=== PATIENT | male | born 1980 | race Caucasian/White ===

== ENCOUNTER 2023-06-21 07:56 | Inpatient (IN) ==
--- NOTE | 2023-06-21 08:23 | DR.GENAD ---
HPI Time Seen Time Seen by Provider: 06/21/23 08:47 PCP Primary Care Physician: Kai Complaint/Symptoms Chief Complaint Doctors Comments: Patient has a 10-year history of chronic infection of his bilateral lower legs. He states that he has had blood clots in both lower legs and he has not been able to heal the wounds in his had a chronic infection in both of those legs. Due to work-up on this patient and Dr. Mcpherson is to come over and further evaluate the chronic bilateral lower leg infections Chief Complaint:: Dr Mcpherson sent me here to [facility] bad spots on my legs secondary cellulitis and blood clots COVID-19 Coronavirus risk:travel/contact w/high risk person: No Has patient experienced Coronavirus symptoms: No Source History Provided: Patient Mode of Arrival Mode of Arrival: Ambulatory Timing Onset of Chief Complaint: 06/21/23 PMH PMH Past Medical History: Yes Past Medical History: Coronary Artery Disease and Hypertension Past Surgical History: Yes Surgical History: Angioplasty/Stents Family History History of Family Medical Conditions: Yes Family Medical History: Diabetes Mellitus, Coronary Artery Disease and Hypertension Social History Does patient currently use any type of tobacco product: No Have you used tobacco products in the last 12 months: No Type of Tobacco Use: None Does any household member use tobacco: No Alcohol Use: None Do you use any recreational Drugs:: No Lives With: Mom Lives Where: Home Travel Risk Coronavirus risk:travel/contact w/high risk person: No Has patient experienced Coronavirus symptoms: No Infectious screening In the last 2 months have you had wt loss of >10#?: NO Have you had fever, night sweats or hemotysis?: No Have you traveled outside the country in the last 6 months?: No Isolation: Standard ROS Review of Systems Constitutional: Other (bilateral lower leg infections) Eyes: No Symptoms Reported ENTM: No Symptoms Reported Respiratoy: No Symptoms Reported Cardiovascular: No Symptoms Reported Gastrointestinal/Abdominal: No Symptoms Reported Genitourinary: No Symptoms Reported Neurological: No Symptoms Reported Musculoskeletal: No Symptoms Reported Integumentary: Other (Bilateral lower leg infections) Hematologic/Lymphatic: No Symptoms Reported Endocrine: No Symptoms Reported Psychiatric: No Symptoms Reported PE Vital Signs Vitals: Vital Signs Temperature 98.1 F Pulse Rate 65 Respiratory Rate 18 Blood Pressure 150/77 O2 Sat by Pulse Oximetry 98 General Limitations: No Limitations General Appearance: In Distress (mild distress) Head Head Exam: Normal Inspection, Atraumatic and Normocephalic Eyes Eye exam: Normal Appearance, PERRL and EOMI ENT ENT Exam: Normal Exam, Normal Oropharynx and Normal External Ear Exam External Ear Exam: Normal External Inspection TM/Canal Exam: Bilateral: Normal Nose Exam: Normal Nose Exam Mouth Exam: Normal Inspection Throat Exam: Normal Inspection Neck Neck Exam: Normal Inspection, Full ROM and Trachea Midline Chest Chest Inspection: Normal Inspection and Symmetric Chest Wall Rise Respiratory Respiratory Exam: Normal Lung Sounds Bilat Respiratory Exam: Bilateral: Clear to Auscultation Cardiovascular Cardiovascular Exam: Regular Rate and Normal Rhythm Abdominal Exam Abdominal Exam: Normal Inspection Extremities Extremities Exam: Other (bilateral lower leg infections) Back Back Exam: Normal Inspection Neurologic Neurological Exam: Alert, Oriented X3 and CN II-XII Intact Psychiatric Psychiatric Exam: Normal Affect and Normal Mood Skin Skin Exam: Erythema (bilateral lowerleg) MDM Differential Diagnosis Differential Diagnosis: bilateral lower leg infections,cellulitis bilateral lower legs COURSE Treatment Treatment: This patient was admitted to Dr. Lovelace for treatments of his bilateral lower leg cellulitis. ROR Labs Reviewed Laboratory Results Reviewed?: Yes 06/21/23 08:43 06/21/23 08:43 Laboratory: WBC 8.5 X10^3/uL (3.6-10.0) 06/21/23 08:43 RBC 4.21 X10^6/uL (4.7-6.0) L 06/21/23 08:43 Hgb 11.1 g/dL (13.5-18.0) L 06/21/23 08:43 Hct 34.0 % (42.0-54.0) L 06/21/23 08:43 MCV 80.7 fL (80.0-100.0) 06/21/23 08:43 MCH 26.3 pg (27.0-34.0) L 06/21/23 08:43 MCHC 32.6 g/dL (33.0-35.0) L 06/21/23 08:43 RDW 17.1 % (11.6-16.5) H 06/21/23 08:43 Plt Count 166 X10^3/uL (150.0-450.0) 06/21/23 08:43 MPV 9.9 fL (7.4-11.0) 06/21/23 08:43 Neut % (Auto) 69.4 % (42.0-75.0) 06/21/23 08:43 Lymph % (Auto) 17.6 % (21.0-51.0) L 06/21/23 08:43 [place] % (Auto) 9.2 % (0.0-13.0) 06/21/23 08:43 Eos % (Auto) 2.8 % (0.9-2.9) 06/21/23 08:43 Baso % (Auto) 1.0 % (0.2-1.0) 06/21/23 08:43 Neut # (Auto) 5.9 x10^3/uL (2.2-4.8) H 06/21/23 08:43 Lymph # (Auto) 1.5 X10^3/uL (1.3-2.9) 06/21/23 08:43 [place] # (Auto) 0.8 x10^3/uL (0.3-0.8) 06/21/23 08:43 Eos # (Auto) 0.2 x10^3/uL (0.0-0.2) 06/21/23 08:43 Baso # (Auto) 0.1 X10^3/uL (0.0-0.1) 06/21/23 08:43 Absolute Nucleated RBC 0.2 /100WBC 06/21/23 08:43 Sodium 137 mmol/L (136-145) 06/21/23 08:43 Corrected Sodium TNP 06/21/23 08:43 Potassium 4.4 mmol/L (3.5-5.1) 06/21/23 08:43 Chloride 102 mmol/L (98-107) 06/21/23 08:43 Carbon Dioxide 28.4 mmol/L (21-32) 06/21/23 08:43 BUN 20 mg/dL (7-18) H 06/21/23 08:43 Creatinine 1.51 mg/dL (0.70-1.30) H 06/21/23 08:43 Est GFR (MDRD) Af Amer > 60 (>60) 06/21/23 08:43 Est GFR (MDRD) Non-Af 54 (>60) L 06/21/23 08:43 Glucose 98 mg/dL (65-99) 06/21/23 08:43 Calcium 7.8 mg/dL (8.5-10.1) L 06/21/23 08:43 Corrected Calcium 8.4 mg/dL (8.5-10.1) L 06/21/23 08:43 Total Bilirubin 0.50 mg/dL (0.2-1.0) 06/21/23 08:43 AST 31 Units/L (15-37) 06/21/23 08:43 ALT 19 Units/L (12-78) 06/21/23 08:43 Alkaline Phosphatase 100 Units/L (46-116) 06/21/23 08:43 Total Protein 8.1 g/dL (6.4-8.2) 06/21/23 08:43 Albumin 3.2 g/dL (3.4-5.0) L 06/21/23 08:43 Globulin 4.9 g/dL (2.5-4.5) H 06/21/23 08:43 Albumin/Globulin Ratio 0.7 Ratio (1.1-2.1) L 06/21/23 08:43 Opioid Opioid Risk Tool Age (Yong box if 16-45): Yes History of Preadolescent Sexual Abuse: No Total: 1 Total Score Risk Category: Low Risk Copyright: Phil BERUMEN predicting aberrant behaviors Discharge Plan Diagnosis Discharge Problem: Bilateral lower leg cellulitis Discharge Plan Patient Disposition: 09 ADMITTED INPATIENT Condition: Stable
[2023-06-21] MEDS ORDERED: VANCOMYCIN IV *PREMIX 1 G/200 ML BAG 1 G/200 ML PIGGYBACK IV ONE ×2 (08:29→08:54)
[2023-06-21] MEDS ORDERED: BETADINE SOLN ONE (08:57)
[2023-06-21] MEDS ORDERED: POLYMYXIN B SULFATE ONE (08:57)
[2023-06-21] MEDS ORDERED: FENTANYL VIAL INJ 100 mcg ONE (09:00)
[2023-06-21] MEDS ORDERED: VERSED ONE (09:00)
[2023-06-21] MEDS ORDERED: DIPRIVAN VIAL 20 ML ONE (09:00)
[2023-06-21] MEDS ORDERED: XYLOCAINE 1 % (PLAIN) ONE (09:06)
[2023-06-21] MEDS ORDERED: LR 1,000 ML IV 1,000 ML IV ONE (09:08)
[2023-06-21] MEDS ORDERED: SUPRANE ONE (09:28)
[2023-06-21 09:37] LABS: BASOPHILS # (AUTO) 0.1 X10^3/uL (0.0-0.1); EOSINOPHILS # (AUTO) 0.2 x10^3/uL (0.0-0.2); EOSINOPHILS % (AUTO) 2.8 % (0.9-2.9); HEMOGLOBIN 11.1 g/dL (13.5-18.0); LYMPHOCYTES # (AUTO) 1.5 X10^3/uL (1.3-2.9); LYMPHOCYTES % (AUTO) 17.6 % (21.0-51.0); MEAN CORPUSCULAR HEMOGLOBIN 26.3 pg (27.0-34.0); MEAN CORPUSCULAR HGB CONC 32.6 g/dL (33.0-35.0); MEAN CORPUSCULAR VOLUME 80.7 fL (80.0-100.0); MEAN PLATELET VOLUME 9.9 fL (7.4-11.0); MONOCYTES # (AUTO) 0.8 x10^3/uL (0.3-0.8); MONOCYTES % (AUTO) 9.2 % (0.0-13.0); NEUTROPHILS # (AUTO) 5.9 x10^3/uL (2.2-4.8); NEUTROPHILS % (AUTO) 69.4 % (42.0-75.0); PLATELET COUNT 166 X10^3/uL (150.0-450.0); RED BLOOD COUNT 4.21 X10^6/uL (4.7-6.0); RED CELL DISTRIBUTION WIDTH 17.1 % (11.6-16.5); WHITE BLOOD COUNT 8.5 X10^3/uL (3.6-10.0)
[2023-06-21 09:47] LABS: ALANINE AMINOTRANSFERASE 19 Units/L (12-78); ALBUMIN 3.2 g/dL (3.4-5.0); ALKALINE PHOSPHATASE 100 Units/L (46-116); ASPARTATE AMINO TRANSFERASE 31 Units/L (15-37); BLOOD UREA NITROGEN 20 mg/dL (7-18); CALCIUM 7.8 mg/dL (8.5-10.1); CARBON DIOXIDE 28.4 mmol/L (21-32); CHLORIDE 102 mmol/L (98-107); COR CA(FOR HYPOALB) 8.4 mg/dL (8.5-10.1); CREATININE 1.51 mg/dL (0.70-1.30); GLUCOSE 98 mg/dL (65-99); POTASSIUM 4.4 mmol/L (3.5-5.1); SODIUM 137 mmol/L (136-145); TOTAL PROTEIN 8.1 g/dL (6.4-8.2); eGFR NON BLACK RACES 54 (>60)
[2023-06-21] MEDS ORDERED: BARHEMSYS INJ IVP PRN (10:38)
[2023-06-21] MEDS ORDERED: BENADRYL INJ 50 MG VIAL IVP PRN (10:38)
[2023-06-21] MEDS ORDERED: REGLAN INJ 10 MG VIAL IVP PRN (10:38)
[2023-06-21] MEDS ORDERED: ZOFRAN INJ 4 MG VIAL IVP PRN (10:38)
[2023-06-21] MEDS: DILAUDID INJ IVP PRN ×6 (10:45→20:32)
[2023-06-21] MEDS: VANCOMYCIN IV *PREMIX 1 G/200 ML BAG 1 G/200 ML PIGGYBACK IV SCH ×2 (12:37→20:34)
[2023-06-21] MEDS: DIOVAN TAB 80 MG PO SCH (18:10)
[2023-06-21] MEDS: ALDACTONE TAB 25 MG PO SCH (20:33)
[2023-06-21] MEDS: BUMEX TAB 1 MG PO SCH (20:33)
[2023-06-21] MEDS ORDERED: NS 250 ML IV 250 ML IV PRN (20:41)
[2023-06-21] MEDS: NEURONTIN CAP 400 MG PO SCH (21:48)
[2023-06-21] MEDS ORDERED: NEURONTIN TAB 600 MG PO SCH (22:00)
[2023-06-22] MEDS: DILAUDID INJ IVP PRN ×2 (05:42→20:26)
[2023-06-22] MEDS: NEURONTIN CAP 400 MG PO SCH ×3 (05:45→21:25)
[2023-06-22 06:53] LABS: BASOPHILS % (AUTO) 0.5 % (0.2-1.0); EOSINOPHILS # (AUTO) 0.2 x10^3/uL (0.0-0.2); EOSINOPHILS % (AUTO) 2.5 % (0.9-2.9); HEMATOCRIT 34.6 % (42.0-54.0); HEMOGLOBIN 11.2 g/dL (13.5-18.0); LYMPHOCYTES % (AUTO) 15.6 % (21.0-51.0); MEAN CORPUSCULAR HEMOGLOBIN 26.1 pg (27.0-34.0); MEAN CORPUSCULAR HGB CONC 32.4 g/dL (33.0-35.0); MEAN CORPUSCULAR VOLUME 80.6 fL (80.0-100.0); MEAN PLATELET VOLUME 9.4 fL (7.4-11.0); MONOCYTES # (AUTO) 0.6 x10^3/uL (0.3-0.8); MONOCYTES % (AUTO) 9.6 % (0.0-13.0); NEUTROPHILS # (AUTO) 4.7 x10^3/uL (2.2-4.8); NEUTROPHILS % (AUTO) 71.8 % (42.0-75.0); PLATELET COUNT 175 X10^3/uL (150.0-450.0); WHITE BLOOD COUNT 6.6 X10^3/uL (3.6-10.0)
[2023-06-22 07:03] LABS: ALANINE AMINOTRANSFERASE 18 Units/L (12-78); ALKALINE PHOSPHATASE 97 Units/L (46-116); ASPARTATE AMINO TRANSFERASE 22 Units/L (15-37); BLOOD UREA NITROGEN 16 mg/dL (7-18); CALCIUM 7.6 mg/dL (8.5-10.1); CHLORIDE 103 mmol/L (98-107); COR CA(FOR HYPOALB) 8.4 mg/dL (8.5-10.1); CREATININE 1.77 mg/dL (0.70-1.30); GLUCOSE 95 mg/dL (65-99); POTASSIUM 4.6 mmol/L (3.5-5.1); SODIUM 139 mmol/L (136-145); TOTAL PROTEIN 7.6 g/dL (6.4-8.2); eGFR NON BLACK RACES 45 (>60)
[2023-06-22] MEDS: BUMEX TAB 1 MG PO SCH ×2 (08:45→20:23)
[2023-06-22] MEDS: ALDACTONE TAB 25 MG PO SCH (08:45)
[2023-06-22] MEDS: DIOVAN TAB 80 MG PO SCH (08:46)
[2023-06-22] MEDS: VANCOMYCIN IV *PREMIX 1 G/200 ML BAG 1 G/200 ML PIGGYBACK IV SCH (08:46)
[2023-06-22] MEDS: LOVENOX INJ 40 MG SYR SC SCH ×2 (08:47→10:00)
[2023-06-22] MEDS ORDERED: ALDACTONE TAB 25 MG PO SCH (09:00)
[2023-06-22] MEDS ORDERED: BUMEX TAB 1 MG PO SCH (09:00)
--- NOTE | 2023-06-22 11:22 | DR.H&P ---
H&P History & Physical for Day of: H&P Date: 06/21/23 Chief Complaint Chief Complaint: Bilateral leg wound's is draining Allergies Allergies Allergy/AdvReac Type Severity Reaction Status Date / Time No Known Drug Allergies Allergy Unknown Verified 06/20/23 15:12 History of Present Illness History of Present Illness: This is a 43-year-old white male well-known to me. He has chronic stasis venous ulcers of his legs bilaterally. Saw in the office yesterday and they were draining and had a foul odor. Afterwards he saw general surgery, Dr. Reed who recommended that we put him in the hospital for debridement which she had earlier this morning. We will keep him in the hospital over the weekend and diuresing him and treatment IV antibiotics. Follow-up with wound cultures as well. Past Medical History Past Medical History: Coronary Artery Disease and Hypertension Past Surgical History Surgical History: Angioplasty/Stents Family History Family Medical History: Diabetes Mellitus, Coronary Artery Disease and Hypertension Social History Does patient currently use any type of tobacco product: Yes (CHEWING TOBACCO) Have you used tobacco products in the last 12 months: Yes Type of Tobacco Use: Smokeless Does any household member use tobacco: No Alcohol Use: None Drug Use: None Medications Home Medications: Home Medications Medication Instructions Recorded Confirmed Type gabapentin 800 mg tablet 800 mg PO TID 06/21/23 06/21/23 History Labs 06/22/23 05:28 06/22/23 05:28 Labs: 06/21/23 10:10 Leg - Right Wound Gram Stain - Final 06/21/23 10:10 Leg - Right Wound Culture - Preliminary 06/21/23 09:55 Leg - Left Wound Gram Stain - Final 06/21/23 09:55 Leg - Left Wound Culture - Preliminary Laboratory WBC 6.6 X10^3/uL (3.6-10.0) 06/22/23 05:28 RBC 4.30 X10^6/uL (4.7-6.0) L 06/22/23 05:28 Hgb 11.2 g/dL (13.5-18.0) L 06/22/23 05:28 Hct 34.6 % (42.0-54.0) L 06/22/23 05:28 MCV 80.6 fL (80.0-100.0) 06/22/23 05:28 MCH 26.1 pg (27.0-34.0) L 06/22/23 05: MCHC 32.4 g/dL (33.0-35.0) L 06/22/23 05: RDW 17.0 % (11.6-16.5) H 06/22/23 05:28 Plt Count 175 X10^3/uL (150.0-450.0) 06/22/23 05:28 MPV 9.4 fL (7.4-11.0) 06/22/23 05:28 Neut % (Auto) 71.8 % (42.0-75.0) 06/22/23 05:28 Lymph % (Auto) 15.6 % (21.0-51.0) L 06/22/23 05:28 [place] % (Auto) 9.6 % (0.0-13.0) 06/22/23 05: Eos % (Auto) 2.5 % (0.9-2.9) 06/22/23 05: Baso % (Auto) 0.5 % (0.2-1.0) 06/22/23 05:28 Neut # (Auto) 4.7 x10^3/uL (2.2-4.8) 06/22/23 05:28 Lymph # (Auto) 1.0 X10^3/uL (1.3-2.9) L 06/22/23 05:28 [place] # (Auto) 0.6 x10^3/uL (0.3-0.8) 06/22/23 05:28 Eos # (Auto) 0.2 x10^3/uL (0.0-0.2) 06/22/23 05:28 Baso # (Auto) 0.0 X10^3/uL (0.0-0.1) 06/22/23 05:28 Absolute Nucleated RBC 0.1 /100WBC 06/22/23 05:28 Sodium 139 mmol/L (136-145) 06/22/23 05:28 Corrected Sodium TNP 06/22/23 05:28 Potassium 4.6 mmol/L (3.5-5.1) 06/22/23 05:28 Chloride 103 mmol/L (98-107) 06/22/23 05:28 Carbon Dioxide 32.0 mmol/L (21-32) 06/22/23 05:28 BUN 16 mg/dL (7-18) 06/22/23 05:28 Creatinine 1.77 mg/dL (0.70-1.30) H 06/22/23 05:28 Est GFR (MDRD) Af Amer 54 (>60) L 06/22/23 05:28 Est GFR (MDRD) Non-Af 45 (>60) L 06/22/23 05:28 Glucose 95 mg/dL (65-99) 06/22/23 05:28 Calcium 7.6 mg/dL (8.5-10.1) L 06/22/23 05:28 Corrected Calcium 8.4 mg/dL (8.5-10.1) L 06/22/23 05:28 Total Bilirubin 0.50 mg/dL (0.2-1.0) 06/22/23 05:28 AST 22 Units/L (15-37) 06/22/23 05:28 ALT 18 Units/L (12-78) 06/22/23 05:28 Alkaline Phosphatase 97 Units/L (46-116) 06/22/23 05:28 Total Protein 7.6 g/dL (6.4-8.2) 06/22/23 05:28 Albumin 3.0 g/dL (3.4-5.0) L 06/22/23 05:28 Globulin 4.6 g/dL (2.5-4.5) H 06/22/23 05:28 Albumin/Globulin Ratio 0.7 Ratio (1.1-2.1) L 06/22/23 05:28 Random Vancomycin 25.8 ug/mL 06/22/23 05:28 Review of Systems Constitutional: No Symptoms Reported Eyes: No Symptoms Reported ENT: No Symptoms Reported Respiratory: No Symptoms Reported Cardiovascular: No Symptoms Reported Gastrointestinal: No Symptoms Reported Genitourinary: No Symptoms Reported Musculoskeletal: No Symptoms Reported Skin: Wound Neurological: No Symptoms Reported Physical Exam Vital Signs: Vital Signs Temperature 98.7 F Pulse Rate [Left Brachial] 65 Respiratory Rate 20 Respiratory Rate 20 Respiratory Rate 20 Blood Pressure [Left Arm] 145/72 O2 Sat by Pulse Oximetry 97 Oriented: Normal, Time, Person and Place Eyes: Normal Ear: Normal Nose: Normal Throat: Normal Respiratory: Clear Throughout Cardiovascular: Normal : Normal Auscultation: Bowel Sounds: Normal Palpation: Normal Tenderness: Normal Skin: Normal Musculoskeletal: Normal Psychiatric: Normal Mood Description: Calm Affect: Normal Speech Pattern: Clear Assessment/Plan (1) Bilateral lower leg cellulitis: Status: Acute Plan: Continue IV vancomycin. (2) On potassium wasting diuretic therapy: Status: Acute Plan: Continue potassium replacement. (3) Bilateral lower extremity edema: Status: Acute Plan: Continue patient on bumetanide and spironolactone. (4) Venous stasis ulcers of both lower extremities: Status: None Plan: Treatment per general surgery and IV vancomycin. Follow-up wound cultures. (5) History of blood coagulation disorder: Status: None Plan: Continue Eliquis. Review H&P Reviewed: Yes Patient was examined?: Yes
[2023-06-22 11:51] VITALS: BMI 59.3
--- NOTE | 2023-06-22 12:35 | PCM.PROG ---
Progress Note Progress Note for Day of Date of Exam: 06/22/23 Subjective Subjective: Patient seen at bedside, no acute events overnight. He was admitted for I&D for chronic LE ulcers. Dr Mcpherson did I&D yesterday and wound cultures were collected. He is currently on IV Vancomycin. Labs/imaging reviewed -Wound cx: gram (-) rods, prior hx of MRSA Plan: continue IV Vancomycin, follow final Cx. Follow surgery recommendations and wound care, dressing changes. Resume home medications. Monitor AM labs/imaging. Past Medical Family Social History Allergies: Allergies No Known Drug Allergies Allergy (Unknown, Verified 06/20/23 15:12) Onset Date: 10/10/2020 Vital Signs and I&O's Vital Signs: Vital Signs Temperature 97.8 F Pulse Rate [Left Brachial] 71 Respiratory Rate 19 Respiratory Rate 20 Respiratory Rate 20 Blood Pressure [Left Arm] 100/76 O2 Sat by Pulse Oximetry 97 Intake and Output: Intake & Output 06/19/23 06/20/23 06/21/23 06/22/23 23:59 23:59 23:59 23:59 Intake Total 2513 / 2513 622 / 622 Output Total 500 / 500 Balance 2012 622 / 622 Physical Exam Oriented: Normal, Time, Person and Place Eyes: Normal Ear: Normal Nose: Normal Throat: Normal Cardiovascular: Edema Auscultation: Bowel Sounds: Normal Tenderness: Normal Skin: Normal Musculoskeletal: Right, Left, Leg (dressing noted with drainage ) and Swelling Psychiatric: Normal Mood Description: Calm Affect: Normal Speech Pattern: Clear Laboratory and Diagnostics 06/22/23 05:28 06/22/23 05:28 Labs: 06/21/23 10:10 Leg - Right Wound Gram Stain - Final 06/21/23 10:10 Leg - Right Wound Culture - Preliminary 06/21/23 09:55 Leg - Left Wound Gram Stain - Final 06/21/23 09:55 Leg - Left Wound Culture - Preliminary Laboratory WBC 6.6 X10^3/uL (3.6-10.0) 06/22/23 05:28 RBC 4.30 X10^6/uL (4.7-6.0) L 06/22/23 05:28 Hgb 11.2 g/dL (13.5-18.0) L 06/22/23 05:28 Hct 34.6 % (42.0-54.0) L 06/22/23 05:28 MCV 80.6 fL (80.0-100.0) 06/22/23 05:28 MCH 26.1 pg (27.0-34.0) L 06/22/23 05:28 MCHC 32.4 g/dL (33.0-35.0) L 06/22/23 05:28 RDW 17.0 % (11.6-16.5) H 06/22/23 05:28 Plt Count 175 X10^3/uL (150.0-450.0) 06/22/23 05:28 MPV 9.4 fL (7.4-11.0) 06/22/23 05:28 Neut % (Auto) 71.8 % (42.0-75.0) 06/22/23 05:28 Lymph % (Auto) 15.6 % (21.0-51.0) L 06/22/23 05:28 [place] % (Auto) 9.6 % (0.0-13.0) 06/22/23 05:28 Eos % (Auto) 2.5 % (0.9-2.9) 06/22/23 05:28 Baso % (Auto) 0.5 % (0.2-1.0) 06/22/23 05:28 Neut # (Auto) 4.7 x10^3/uL (2.2-4.8) 06/22/23 05:28 Lymph # (Auto) 1.0 X10^3/uL (1.3-2.9) L 06/22/23 05:28 [place] # (Auto) 0.6 x10^3/uL (0.3-0.8) 06/22/23 05:28 Eos # (Auto) 0.2 x10^3/uL (0.0-0.2) 06/22/23 05:28 Baso # (Auto) 0.0 X10^3/uL (0.0-0.1) 06/22/23 05:28 Absolute Nucleated RBC 0.1 /100WBC 06/22/23 05:28 Sodium 139 mmol/L (136-145) 06/22/23 05:28 Corrected Sodium TNP 06/22/23 05:28 Potassium 4.6 mmol/L (3.5-5.1) 06/22/23 05:28 Chloride 103 mmol/L (98-107) 06/22/23 05:28 Carbon Dioxide 32.0 mmol/L (21-32) 06/22/23 05:28 BUN 16 mg/dL (7-18) 06/22/23 05:28 Creatinine 1.77 mg/dL (0.70-1.30) H 06/22/23 05:28 Est GFR (MDRD) Af Amer 54 (>60) L 06/22/23 05:28 Est GFR (MDRD) Non-Af 45 (>60) L 06/22/23 05:28 Glucose 95 mg/dL (65-99) 06/22/23 05:28 Calcium 7.6 mg/dL (8.5-10.1) L 06/22/23 05:28 Corrected Calcium 8.4 mg/dL (8.5-10.1) L 06/22/23 05:28 Total Bilirubin 0.50 mg/dL (0.2-1.0) 06/22/23 05:28 AST 22 Units/L (15-37) 06/22/23 05:28 ALT 18 Units/L (12-78) 06/22/23 05:28 Alkaline Phosphatase 97 Units/L (46-116) 06/22/23 05:28 Total Protein 7.6 g/dL (6.4-8.2) 06/22/23 05:28 Albumin 3.0 g/dL (3.4-5.0) L 06/22/23 05:28 Globulin 4.6 g/dL (2.5-4.5) H 06/22/23 05:28 Albumin/Globulin Ratio 0.7 Ratio (1.1-2.1) L 06/22/23 05:28 Random Vancomycin 25.8 ug/mL 06/22/23 05:28 Plan (1) Bilateral lower leg cellulitis: Status: Acute Plan: Continue IV vancomycin. (2) Bilateral lower extremity edema: Status: Acute Plan: Continue patient on bumetanide and spironolactone. (3) Venous stasis ulcers of both lower extremities: Status: None Plan: Treatment per general surgery and IV vancomycin. Follow-up wound cultures. (4) History of blood coagulation disorder: Status: None Plan: Continue Eliquis.
[2023-06-22] MEDS: ELIQUIS PO SCH ×2 (13:00→20:23)
[2023-06-22] MEDS: NORCO 10/325 TAB PO PRN (15:35)
[2023-06-22] MEDS ORDERED: PHARMACY COMMENT IV NR (20:30)
[2023-06-23] MEDS: DILAUDID INJ IVP PRN ×4 (05:42→22:03)
[2023-06-23] MEDS: NEURONTIN CAP 400 MG PO SCH ×3 (05:42→22:25)
[2023-06-23 07:02] LABS: BASOPHILS # (AUTO) 0.1 X10^3/uL (0.0-0.1); BASOPHILS % (AUTO) 1.2 % (0.2-1.0); EOSINOPHILS # (AUTO) 0.2 x10^3/uL (0.0-0.2); EOSINOPHILS % (AUTO) 5.1 % (0.9-2.9); HEMATOCRIT 34.6 % (42.0-54.0); HEMOGLOBIN 11.3 g/dL (13.5-18.0); LYMPHOCYTES # (AUTO) 1.4 X10^3/uL (1.3-2.9); LYMPHOCYTES % (AUTO) 30.9 % (21.0-51.0); MEAN CORPUSCULAR HGB CONC 32.6 g/dL (33.0-35.0); MEAN CORPUSCULAR VOLUME 79.7 fL (80.0-100.0); MEAN PLATELET VOLUME 9.1 fL (7.4-11.0); MONOCYTES # (AUTO) 0.7 x10^3/uL (0.3-0.8); MONOCYTES % (AUTO) 16.1 % (0.0-13.0); NEUTROPHILS # (AUTO) 2.1 x10^3/uL (2.2-4.8); NEUTROPHILS % (AUTO) 46.7 % (42.0-75.0); PLATELET COUNT 177 X10^3/uL (150.0-450.0); RED BLOOD COUNT 4.35 X10^6/uL (4.7-6.0); RED CELL DISTRIBUTION WIDTH 16.9 % (11.6-16.5); WHITE BLOOD COUNT 4.4 X10^3/uL (3.6-10.0)
[2023-06-23 07:14] LABS: ALANINE AMINOTRANSFERASE 21 Units/L (12-78); ALKALINE PHOSPHATASE 100 Units/L (46-116); ASPARTATE AMINO TRANSFERASE 27 Units/L (15-37); BLOOD UREA NITROGEN 21 mg/dL (7-18); CALCIUM 7.8 mg/dL (8.5-10.1); CARBON DIOXIDE 31.7 mmol/L (21-32); CHLORIDE 101 mmol/L (98-107); COR CA(FOR HYPOALB) 8.6 mg/dL (8.5-10.1); CREATININE 1.52 mg/dL (0.70-1.30); GLUCOSE 94 mg/dL (65-99); SODIUM 136 mmol/L (136-145); TOTAL PROTEIN 7.7 g/dL (6.4-8.2); eGFR NON BLACK RACES 53 (>60)
[2023-06-23 07:40] LABS: PLATELET MORPHOLOGY COMMENT NORMAL (NORMAL)
[2023-06-23 07:41] LABS: ANISOCYTOSIS SLIGHT; HYPOCHROMASIA SLIGHT
--- NOTE | 2023-06-23 08:53 | DR.PROGNOT ---
HOSPITAL PROGRESS NOTE Progress Note for Day of: Progress Note Date: 06/23/23 Chief Complaint Chief Complaint: feeling a little better with less pain . wound C&S showed G negative Rods and MRSA .. sensitive to Vancomycin . IRAIS 21 .. Creat 1.5 .normal WBC . afebrile .. Past Medical Family Social History Past Med/Fam/Surg Hx: No changes since H&P Allergies: Allergies No Known Drug Allergies Allergy (Unknown, Verified 06/20/23 15:12) Onset Date: 10/10/2020 Vital Signs Vital Signs: Vital Signs Temperature 97.6 F Pulse Rate [Left Brachial] 73 Respiratory Rate 18 Respiratory Rate 20 Respiratory Rate 20 Blood Pressure [Right Arm] 130/70 O2 Sat by Pulse Oximetry 99 Physical Exam Oriented: Normal, Time, Person and Place Eyes: Normal Ear: Normal Nose: Normal Throat: Normal Cardiovascular: Edema : Normal GI:Auscultation: Normal GI:Palpation: Normal GI: Tenderness: Normal Skin: Normal and Other (bilateral leg ulcer more on the RT with chronic edema and stasis ulcers .) Musculoskeletal: Right, Left, Leg (dressing noted with drainage ) and Swelling Psychiatric: Normal Mood Description: Calm Affect: Normal Speech Pattern: Clear and Appropriate Laboratory and Diagnostics 06/23/23 06:10 06/23/23 06:10 Labs: 06/21/23 10:10 Leg - Right Wound Gram Stain - Final 06/21/23 10:10 Leg - Right Wound Culture - Preliminary 06/21/23 09:55 Leg - Left Wound Gram Stain - Final 06/21/23 09:55 Leg - Left Wound Culture - Preliminary Laboratory WBC 4.4 X10^3/uL (3.6-10.0) 06/23/23 06:10 RBC 4.35 X10^6/uL (4.7-6.0) L 06/23/23 06:10 Hgb 11.3 g/dL (13.5-18.0) L 06/23/23 06:10 Hct 34.6 % (42.0-54.0) L 06/23/23 06:10 MCV 79.7 fL (80.0-100.0) L 06/23/23 06:10 MCH 26.0 pg (27.0-34.0) L 06/23/23 06:10 MCHC 32.6 g/dL (33.0-35.0) L 06/23/23 06:10 RDW 16.9 % (11.6-16.5) H 06/23/23 06:10 Plt Count 177 X10^3/uL (150.0-450.0) 06/23/23 06:10 Plt Count Comment Adequate (ADEQUATE) 06/23/23 06:10 MPV 9.1 fL (7.4-11.0) 06/23/23 06:10 Neut % (Auto) 46.7 % (42.0-75.0) 06/23/23 06:10 Lymph % (Auto) 30.9 % (21.0-51.0) 06/23/23 06:10 [place] % (Auto) 16.1 % (0.0-13.0) H 06/23/23 06:10 Eos % (Auto) 5.1 % (0.9-2.9) H 06/23/23 06:10 Baso % (Auto) 1.2 % (0.2-1.0) H 06/23/23 06:10 Neut # (Auto) 2.1 x10^3/uL (2.2-4.8) L 06/23/23 06:10 Lymph # (Auto) 1.4 X10^3/uL (1.3-2.9) 06/23/23 06:10 [place] # (Auto) 0.7 x10^3/uL (0.3-0.8) 06/23/23 06:10 Eos # (Auto) 0.2 x10^3/uL (0.0-0.2) 06/23/23 06:10 Baso # (Auto) 0.1 X10^3/uL (0.0-0.1) 06/23/23 06:10 Absolute Nucleated RBC 0.1 /100WBC 06/23/23 06:10 Total Counted 100 06/23/23 06:10 Neutrophils % (Manual) 51 % (39-76) 06/23/23 06:10 Lymphocytes % (Manual) 29 % (13-43) 06/23/23 06:10 Monocytes % (Manual) 17 % (4-9) H 06/23/23 06:10 Eosinophils % (Manual) 3 % (0-6) 06/23/23 06:10 Plt Morphology Comment Normal (NORMAL) 06/23/23 06:10 RBC Morphology Abnormal (NORMAL) 06/23/23 06:10 Hypochromasia Slight A 06/23/23 06:10 Anisocytosis Slight A 06/23/23 06:10 Sodium 136 mmol/L (136-145) 06/23/23 06:10 Corrected Sodium TNP 06/23/23 06:10 Potassium 4.0 mmol/L (3.5-5.1) 06/23/23 06:10 Chloride 101 mmol/L (98-107) 06/23/23 06:10 Carbon Dioxide 31.7 mmol/L (21-32) 06/23/23 06:10 BUN 21 mg/dL (7-18) H 06/23/23 06:10 Creatinine 1.52 mg/dL (0.70-1.30) H 06/23/23 06:10 Est GFR (MDRD) Af Amer > 60 (>60) 06/23/23 06:10 Est GFR (MDRD) Non-Af 53 (>60) L 06/23/23 06:10 Glucose 94 mg/dL (65-99) 06/23/23 06:10 Calcium 7.8 mg/dL (8.5-10.1) L 06/23/23 06:10 Corrected Calcium 8.6 mg/dL (8.5-10.1) 06/23/23 06:10 Total Bilirubin 0.40 mg/dL (0.2-1.0) 06/23/23 06:10 AST 27 Units/L (15-37) 06/23/23 06:10 ALT 21 Units/L (12-78) 06/23/23 06:10 Alkaline Phosphatase 100 Units/L (46-116) 06/23/23 06:10 Total Protein 7.7 g/dL (6.4-8.2) 06/23/23 06:10 Albumin 3.0 g/dL (3.4-5.0) L 06/23/23 06:10 Globulin 4.7 g/dL (2.5-4.5) H 06/23/23 06:10 Albumin/Globulin Ratio 0.6 Ratio (1.1-2.1) L 06/23/23 06:10 Random Vancomycin 22.4 ug/mL 06/23/23 06:10 Assessment and Plan 1: infected stasis ulcers both legs with cellulitis , s/p debridement . MRSA and G negative Rods . onIV vancomycin . 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 3: obesity , chronic edema lower extr Problem Patient Problems: Patient Problems Bilateral lower leg cellulitis (Acute) L03.116, L03.115
[2023-06-23] MEDS: ALDACTONE TAB 25 MG PO SCH (09:10)
[2023-06-23] MEDS: BUMEX TAB 1 MG PO SCH (09:10)
[2023-06-23] MEDS: ELIQUIS PO SCH ×2 (09:10→20:50)
[2023-06-23] MEDS: DIOVAN TAB 80 MG PO SCH (09:10)
--- NOTE | 2023-06-23 11:36 | PCM.PROG ---
Progress Note Progress Note for Day of Date of Exam: 06/23/23 Subjective Subjective: Patient seen at bedside, no acute events overnight. He was admitted for I&D for chronic LE ulcers. He is currently on IV Vancomycin. He had dressing change this morning. Labs/imaging reviewed - Cr: 1.52 -Wound cx: gram (-) rods, prior hx of MRSA Plan: continue IV Vancomycin, follow final Cx. Follow surgery recommendations and wound care, dressing changes. Continue home medications. Monitor AM labs/imaging. Past Medical Family Social History Past Med/Fam/Surg Hx: No changes since H&P Allergies: Allergies No Known Drug Allergies Allergy (Unknown, Verified 06/20/23 15:12) Onset Date: 10/10/2020 Vital Signs and I&O's Vital Signs: Vital Signs Temperature 97.6 F Pulse Rate [Left Brachial] 73 Respiratory Rate 18 Respiratory Rate 20 Respiratory Rate 20 Blood Pressure [Right Arm] 130/70 O2 Sat by Pulse Oximetry 99 Intake and Output: Intake & Output 06/20/23 06/21/23 06/22/23 06/23/23 23:59 23:59 23:59 23:59 Intake Total 2513 / 2513 1372 / 1372 814 / 814 Output Total 500 / 500 960 / 960 Balance 2012 1372 / 1372 -146 / -146 Physical Exam Oriented: Normal, Time, Person and Place Eyes: Normal Ear: Normal Nose: Normal Throat: Normal Cardiovascular: Edema Auscultation: Bowel Sounds: Normal Tenderness: Normal Skin: Normal and Other (bilateral leg ulcer more on the RT with chronic edema and stasis ulcers .) Musculoskeletal: Right, Left, Leg (dressing noted with drainage ) and Swelling Psychiatric: Normal Mood Description: Calm Affect: Normal Speech Pattern: Clear and Appropriate Laboratory and Diagnostics 06/23/23 06:10 06/23/23 06:10 Labs: 06/21/23 10:10 Leg - Right Wound Gram Stain - Final 06/21/23 10:10 Leg - Right Wound Culture - Preliminary Klebsiella Pneumoniae 06/21/23 09:55 Leg - Left Wound Gram Stain - Final 06/21/23 09:55 Leg - Left Wound Culture - Preliminary Laboratory WBC 4.4 X10^3/uL (3.6-10.0) 06/23/23 06:10 RBC 4.35 X10^6/uL (4.7-6.0) L 06/23/23 06:10 Hgb 11.3 g/dL (13.5-18.0) L 06/23/23 06:10 Hct 34.6 % (42.0-54.0) L 06/23/23 06:10 MCV 79.7 fL (80.0-100.0) L 06/23/23 06:10 MCH 26.0 pg (27.0-34.0) L 06/23/23 06:10 MCHC 32.6 g/dL (33.0-35.0) L 06/23/23 06:10 RDW 16.9 % (11.6-16.5) H 06/23/23 06:10 Plt Count 177 X10^3/uL (150.0-450.0) 06/23/23 06:10 Plt Count Comment Adequate (ADEQUATE) 06/23/23 06:10 MPV 9.1 fL (7.4-11.0) 06/23/23 06:10 Neut % (Auto) 46.7 % (42.0-75.0) 06/23/23 06:10 Lymph % (Auto) 30.9 % (21.0-51.0) 06/23/23 06:10 Rowan % (Auto) 16.1 % (0.0-13.0) H 06/23/23 06:10 Eos % (Auto) 5.1 % (0.9-2.9) H 06/23/23 06:10 Baso % (Auto) 1.2 % (0.2-1.0) H 06/23/23 06:10 Neut # (Auto) 2.1 x10^3/uL (2.2-4.8) L 06/23/23 06:10 Lymph # (Auto) 1.4 X10^3/uL (1.3-2.9) 06/23/23 06:10 Rowan # (Auto) 0.7 x10^3/uL (0.3-0.8) 06/23/23 06:10 Eos # (Auto) 0.2 x10^3/uL (0.0-0.2) 06/23/23 06:10 Baso # (Auto) 0.1 X10^3/uL (0.0-0.1) 06/23/23 06:10 Absolute Nucleated RBC 0.1 /100WBC 06/23/23 06:10 Total Counted 100 06/23/23 06:10 Neutrophils % (Manual) 51 % (39-76) 06/23/23 06:10 Lymphocytes % (Manual) 29 % (13-43) 06/23/23 06:10 Monocytes % (Manual) 17 % (4-9) H 06/23/23 06:10 Eosinophils % (Manual) 3 % (0-6) 06/23/23 06:10 Plt Morphology Comment Normal (NORMAL) 06/23/23 06:10 RBC Morphology Abnormal (NORMAL) 06/23/23 06:10 Hypochromasia Slight A 06/23/23 06:10 Anisocytosis Slight A 06/23/23 06:10 Sodium 136 mmol/L (136-145) 06/23/23 06:10 Corrected Sodium TNP 06/23/23 06:10 Potassium 4.0 mmol/L (3.5-5.1) 06/23/23 06:10 Chloride 101 mmol/L (98-107) 06/23/23 06:10 Carbon Dioxide 31.7 mmol/L (21-32) 06/23/23 06:10 BUN 21 mg/dL (7-18) H 06/23/23 06:10 Creatinine 1.52 mg/dL (0.70-1.30) H 06/23/23 06:10 Est GFR (MDRD) Af Amer > 60 (>60) 06/23/23 06:10 Est GFR (MDRD) Non-Af 53 (>60) L 06/23/23 06:10 Glucose 94 mg/dL (65-99) 06/23/23 06:10 Calcium 7.8 mg/dL (8.5-10.1) L 06/23/23 06:10 Corrected Calcium 8.6 mg/dL (8.5-10.1) 06/23/23 06:10 Total Bilirubin 0.40 mg/dL (0.2-1.0) 06/23/23 06:10 AST 27 Units/L (15-37) 06/23/23 06:10 ALT 21 Units/L (12-78) 06/23/23 06:10 Alkaline Phosphatase 100 Units/L (46-116) 06/23/23 06:10 Total Protein 7.7 g/dL (6.4-8.2) 06/23/23 06:10 Albumin 3.0 g/dL (3.4-5.0) L 06/23/23 06:10 Globulin 4.7 g/dL (2.5-4.5) H 06/23/23 06:10 Albumin/Globulin Ratio 0.6 Ratio (1.1-2.1) L 06/23/23 06:10 Random Vancomycin 22.4 ug/mL 06/23/23 06:10 Plan (1) Bilateral lower leg cellulitis: Status: Acute Plan: Continue IV vancomycin. (2) Bilateral lower extremity edema: Status: Acute Plan: Continue patient on bumetanide and spironolactone. (3) Venous stasis ulcers of both lower extremities: Status: None Plan: Treatment per general surgery and IV vancomycin. Follow-up wound cultures. (4) History of blood coagulation disorder: Status: None Plan: Continue Eliquis.
[2023-06-23] MEDS ORDERED: VANCOMYCIN IV *PREMIX 1 G/200 ML BAG 1 G/200 ML PIGGYBACK IV SCH (21:00)
[2023-06-24] MEDS: DILAUDID INJ IVP PRN ×4 (03:07→20:49)
[2023-06-24] MEDS: NEURONTIN CAP 400 MG PO SCH ×3 (05:41→21:02)
[2023-06-24 06:51] LABS: BASOPHILS # (AUTO) 0.1 X10^3/uL (0.0-0.1); EOSINOPHILS # (AUTO) 0.3 x10^3/uL (0.0-0.2); EOSINOPHILS % (AUTO) 4.9 % (0.9-2.9); HEMATOCRIT 35.6 % (42.0-54.0); HEMOGLOBIN 11.5 g/dL (13.5-18.0); LYMPHOCYTES # (AUTO) 1.3 X10^3/uL (1.3-2.9); MEAN CORPUSCULAR HEMOGLOBIN 25.9 pg (27.0-34.0); MEAN CORPUSCULAR HGB CONC 32.2 g/dL (33.0-35.0); MEAN CORPUSCULAR VOLUME 80.4 fL (80.0-100.0); MEAN PLATELET VOLUME 8.7 fL (7.4-11.0); MONOCYTES # (AUTO) 0.7 x10^3/uL (0.3-0.8); MONOCYTES % (AUTO) 13.1 % (0.0-13.0); NEUTROPHILS # (AUTO) 2.9 x10^3/uL (2.2-4.8); PLATELET COUNT 160 X10^3/uL (150.0-450.0); RED BLOOD COUNT 4.43 X10^6/uL (4.7-6.0); RED CELL DISTRIBUTION WIDTH 17.3 % (11.6-16.5); WHITE BLOOD COUNT 5.2 X10^3/uL (3.6-10.0)
[2023-06-24 06:55] LABS: BLOOD UREA NITROGEN 28 mg/dL (7-18); CALCIUM 8.1 mg/dL (8.5-10.1); CARBON DIOXIDE 31.1 mmol/L (21-32); CHLORIDE 102 mmol/L (98-107); CREATININE 1.56 mg/dL (0.70-1.30); GLUCOSE 97 mg/dL (65-99); SODIUM 136 mmol/L (136-145); eGFR NON BLACK RACES 52 (>60)
[2023-06-24] MEDS ORDERED: VANCOMYCIN IV *PREMIX 1 G/200 ML BAG 1 G/200 ML PIGGYBACK IV SCH ×2 (09:00→09:30)
[2023-06-24] MEDS: DIOVAN TAB 80 MG PO SCH (09:05)
[2023-06-24] MEDS: TOPAMAX TAB 100 MG PO SCH ×2 (09:06→20:48)
[2023-06-24] MEDS: ALDACTONE TAB 25 MG PO SCH (09:06)
[2023-06-24] MEDS: ELIQUIS PO SCH ×2 (09:06→20:48)
[2023-06-24] MEDS: ZOSYN VIAL 3.375 GRAMS 3.375 G in NS 100 ML IV 100 ML IV SCH ×2 (15:42→21:03)
--- NOTE | 2023-06-24 16:18 | DR.PROGNOT ---
HOSPITAL PROGRESS NOTE Progress Note for Day of: Progress Note Date: 06/24/23 Chief Complaint Chief Complaint: feeling better with less pain . wound C&S showed G negative Rods and MRSA .. sensitive to Vancomycin . IRAIS 21 .. Creat 1.5 .normal WBC . afebrile .. Past Medical Family Social History Past Med/Fam/Surg Hx: No changes since H&P Allergies: Allergies No Known Drug Allergies Allergy (Unknown, Verified 06/20/23 15:12) Onset Date: 10/10/2020 Vital Signs Vital Signs: Vital Signs Temperature 98.0 F Pulse Rate [Left Brachial] 76 Respiratory Rate 20 Respiratory Rate 20 Respiratory Rate 20 Respiratory Rate 20 Blood Pressure [Right Arm] 131/54 O2 Sat by Pulse Oximetry 95 Physical Exam Oriented: Normal, Time, Person and Place Eyes: Normal Ear: Normal Nose: Normal Throat: Normal Cardiovascular: Edema : Normal GI:Auscultation: Normal GI:Palpation: Normal GI: Tenderness: Normal Skin: Normal and Other (bilateral leg ulcer more on the RT with chronic edema and stasis ulcers .) Musculoskeletal: Right, Left, Leg (dressing noted with drainage ) and Swelling Psychiatric: Normal Mood Description: Calm Affect: Normal Speech Pattern: Clear and Appropriate Laboratory and Diagnostics 06/24/23 06:39 06/24/23 06:39 Labs: 06/21/23 10:10 Leg - Right Wound Gram Stain - Final 06/21/23 10:10 Leg - Right Wound Culture - Final Klebsiella Pneumoniae Shewanella Putrefaciens 06/21/23 09:55 Leg - Left Wound Gram Stain - Final 06/21/23 09:55 Leg - Left Wound Culture - Preliminary Escherichia Coli Esbl Enterobacter Cloacae Laboratory WBC 5.2 X10^3/uL (3.6-10.0) 06/24/23 06:39 RBC 4.43 X10^6/uL (4.7-6.0) L 06/24/23 06:39 Hgb 11.5 g/dL (13.5-18.0) L 06/24/23 06:39 Hct 35.6 % (42.0-54.0) L 06/24/23 06:39 MCV 80.4 fL (80.0-100.0) 06/24/23 06:39 MCH 25.9 pg (27.0-34.0) L 06/24/23 06:39 MCHC 32.2 g/dL (33.0-35.0) L 06/24/23 06:39 RDW 17.3 % (11.6-16.5) H 06/24/23 06:39 Plt Count 160 X10^3/uL (150.0-450.0) 06/24/23 06:39 Plt Count Comment Adequate (ADEQUATE) 06/23/23 06:10 MPV 8.7 fL (7.4-11.0) 06/24/23 06:39 Neut % (Auto) 56.0 % (42.0-75.0) 06/24/23 06:39 Lymph % (Auto) 25.0 % (21.0-51.0) 06/24/23 06:39 Page % (Auto) 13.1 % (0.0-13.0) H 06/24/23 06:39 Eos % (Auto) 4.9 % (0.9-2.9) H 06/24/23 06:39 Baso % (Auto) 1.0 % (0.2-1.0) 06/24/23 06:39 Neut # (Auto) 2.9 x10^3/uL (2.2-4.8) 06/24/23 06:39 Lymph # (Auto) 1.3 X10^3/uL (1.3-2.9) 06/24/23 06:39 Page # (Auto) 0.7 x10^3/uL (0.3-0.8) 06/24/23 06:39 Eos # (Auto) 0.3 x10^3/uL (0.0-0.2) H 06/24/23 06:39 Baso # (Auto) 0.1 X10^3/uL (0.0-0.1) 06/24/23 06:39 Absolute Nucleated RBC 0.1 /100WBC 06/24/23 06:39 Total Counted 100 06/23/23 06:10 Neutrophils % (Manual) 51 % (39-76) 06/23/23 06:10 Lymphocytes % (Manual) 29 % (13-43) 06/23/23 06:10 Monocytes % (Manual) 17 % (4-9) H 06/23/23 06:10 Eosinophils % (Manual) 3 % (0-6) 06/23/23 06:10 Plt Morphology Comment Normal (NORMAL) 06/23/23 06:10 RBC Morphology Abnormal (NORMAL) 06/23/23 06:10 Hypochromasia Slight A 06/23/23 06:10 Anisocytosis Slight A 06/23/23 06:10 Sodium 136 mmol/L (136-145) 06/24/23 06:39 Corrected Sodium TNP 06/24/23 06:39 Potassium 4.0 mmol/L (3.5-5.1) 06/24/23 06:39 Chloride 102 mmol/L (98-107) 06/24/23 06:39 Carbon Dioxide 31.1 mmol/L (21-32) 06/24/23 06:39 BUN 28 mg/dL (7-18) H 06/24/23 06:39 Creatinine 1.56 mg/dL (0.70-1.30) H 06/24/23 06:39 Est GFR (MDRD) Af Amer > 60 (>60) 06/24/23 06:39 Est GFR (MDRD) Non-Af 52 (>60) L 06/24/23 06:39 Glucose 97 mg/dL (65-99) 06/24/23 06:39 Calcium 8.1 mg/dL (8.5-10.1) L 06/24/23 06:39 Corrected Calcium 8.6 mg/dL (8.5-10.1) 06/23/23 06:10 Total Bilirubin 0.40 mg/dL (0.2-1.0) 06/23/23 06:10 AST 27 Units/L (15-37) 06/23/23 06:10 ALT 21 Units/L (12-78) 06/23/23 06:10 Alkaline Phosphatase 100 Units/L (46-116) 06/23/23 06:10 Total Protein 7.7 g/dL (6.4-8.2) 06/23/23 06:10 Albumin 3.0 g/dL (3.4-5.0) L 06/23/23 06:10 Globulin 4.7 g/dL (2.5-4.5) H 06/23/23 06:10 Albumin/Globulin Ratio 0.6 Ratio (1.1-2.1) L 06/23/23 06:10 Random Vancomycin 22.4 ug/mL 06/23/23 06:10 Assessment and Plan 1: infected stasis ulcers both legs with cellulitis , s/p debridement . MRSA and Gram negative Rods . on IV vancomycin . local care , packing with Iodoform . 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 3: obesity , chronic edema lower extr Problem Patient Problems: Patient Problems (Updated 06/21/23 @ 23:57 by Dharmesh Hampton) Bilateral lower leg cellulitis (Acute) L03.116, L03.115
[2023-06-25] MEDS: NEURONTIN CAP 400 MG PO SCH ×3 (05:04→21:43)
[2023-06-25] MEDS: ZOSYN VIAL 3.375 GRAMS 3.375 G in NS 100 ML IV 100 ML IV SCH ×3 (05:06→21:43)
[2023-06-25] MEDS: DILAUDID INJ IVP PRN ×5 (05:19→22:35)
[2023-06-25 06:22] LABS: BASOPHILS % (AUTO) 0.8 % (0.2-1.0); EOSINOPHILS # (AUTO) 0.3 x10^3/uL (0.0-0.2); EOSINOPHILS % (AUTO) 5.5 % (0.9-2.9); HEMATOCRIT 34.5 % (42.0-54.0); HEMOGLOBIN 11.3 g/dL (13.5-18.0); LYMPHOCYTES # (AUTO) 1.8 X10^3/uL (1.3-2.9); LYMPHOCYTES % (AUTO) 34.8 % (21.0-51.0); MEAN CORPUSCULAR HEMOGLOBIN 26.1 pg (27.0-34.0); MEAN CORPUSCULAR HGB CONC 32.9 g/dL (33.0-35.0); MEAN CORPUSCULAR VOLUME 79.4 fL (80.0-100.0); MONOCYTES # (AUTO) 0.7 x10^3/uL (0.3-0.8); NEUTROPHILS # (AUTO) 2.3 x10^3/uL (2.2-4.8); NEUTROPHILS % (AUTO) 44.9 % (42.0-75.0); PLATELET COUNT 173 X10^3/uL (150.0-450.0); RED BLOOD COUNT 4.34 X10^6/uL (4.7-6.0); RED CELL DISTRIBUTION WIDTH 17.1 % (11.6-16.5)
[2023-06-25 06:48] LABS: ALANINE AMINOTRANSFERASE 22 Units/L (12-78); ALKALINE PHOSPHATASE 98 Units/L (46-116); ASPARTATE AMINO TRANSFERASE 23 Units/L (15-37); BLOOD UREA NITROGEN 31 mg/dL (7-18); CALCIUM 7.9 mg/dL (8.5-10.1); CARBON DIOXIDE 26.4 mmol/L (21-32); CHLORIDE 102 mmol/L (98-107); COR CA(FOR HYPOALB) 8.7 mg/dL (8.5-10.1); CREATININE 1.79 mg/dL (0.70-1.30); GLUCOSE 88 mg/dL (65-99); POTASSIUM 4.5 mmol/L (3.5-5.1); SODIUM 136 mmol/L (136-145); TOTAL PROTEIN 7.8 g/dL (6.4-8.2); eGFR NON BLACK RACES 44 (>60)
--- NOTE | 2023-06-25 08:08 | PCM.PROG ---
Progress Note Progress Note for Day of Date of Exam: 06/24/23 Subjective Subjective: The patient reports he is feeling better this morning. One of his cultures came back and it grew out Klebsiella pneumoniae. It is sensitive to Zosyn. He had a call later in the afternoon for another organisms that were all sensitive to Zosyn. We will continue Zosyn and stop his vancomycin. Past Medical Family Social History Past Med/Fam/Surg Hx: No changes since H&P Allergies: Allergies No Known Drug Allergies Allergy (Unknown, Verified 06/20/23 15:12) Onset Date: 10/10/2020 Review of Systems ROS: No change since H&P Vital Signs and I&O's Vital Signs: Vital Signs Temperature 98.4 F Pulse Rate [Left Brachial] 64 Respiratory Rate 20 Respiratory Rate 20 Respiratory Rate 20 Blood Pressure [Right Arm] 113/60 O2 Sat by Pulse Oximetry 95 Intake and Output: Intake & Output 06/22/23 06/23/23 06/24/23 06/25/23 11:59 11:59 11:59 11:59 Intake Total 2084 1564 / 1564 192 / 1919 2586 / 2586 Output Total 960 / 960 Balance 2084 604 / 604 1919 / 1919 258 / 2586 Physical Exam Oriented: Normal, Time, Person and Place Eyes: Normal Ear: Normal Nose: Normal Throat: Normal Cardiovascular: Edema : Normal Auscultation: Bowel Sounds: Normal Tenderness: Normal Skin: Normal and Other (bilateral leg ulcer more on the RT with chronic edema and stasis ulcers .) Musculoskeletal: Right, Left, Leg (dressing noted with drainage ) and Swelling Psychiatric: Normal Mood Description: Calm Affect: Normal Speech Pattern: Clear and Appropriate Laboratory and Diagnostics 06/25/23 05:23 06/25/23 05:23 Labs: 06/21/23 10:10 Leg - Right Wound Gram Stain - Final 06/21/23 10:10 Leg - Right Wound Culture - Final Klebsiella Pneumoniae Shewanella Putrefaciens 06/21/23 09:55 Leg - Left Wound Gram Stain - Final 06/21/23 09:55 Leg - Left Wound Culture - Preliminary Escherichia Coli Esbl Enterobacter Cloacae Laboratory WBC 5.0 X10^3/uL (3.6-10.0) 06/25/23 05:23 RBC 4.34 X10^6/uL (4.7-6.0) L 06/25/23 05:23 Hgb 11.3 g/dL (13.5-18.0) L 06/25/23 05:23 Hct 34.5 % (42.0-54.0) L 06/25/23 05:23 MCV 79.4 fL (80.0-100.0) L 06/25/23 05:23 MCH 26.1 pg (27.0-34.0) L 06/25/23 05:23 MCHC 32.9 g/dL (33.0-35.0) L 06/25/23 05:23 RDW 17.1 % (11.6-16.5) H 06/25/23 05:23 Plt Count 173 X10^3/uL (150.0-450.0) 06/25/23 05:23 Plt Count Comment Adequate (ADEQUATE) 06/23/23 06:10 MPV 9.0 fL (7.4-11.0) 06/25/23 05:23 Neut % (Auto) 44.9 % (42.0-75.0) 06/25/23 05:23 Lymph % (Auto) 34.8 % (21.0-51.0) 06/25/23 05:23 Chase % (Auto) 14.0 % (0.0-13.0) H 06/25/23 05:23 Eos % (Auto) 5.5 % (0.9-2.9) H 06/25/23 05:23 Baso % (Auto) 0.8 % (0.2-1.0) 06/25/23 05:23 Neut # (Auto) 2.3 x10^3/uL (2.2-4.8) 06/25/23 05:23 Lymph # (Auto) 1.8 X10^3/uL (1.3-2.9) 06/25/23 05:23 Chase # (Auto) 0.7 x10^3/uL (0.3-0.8) 06/25/23 05:23 Eos # (Auto) 0.3 x10^3/uL (0.0-0.2) H 06/25/23 05:23 Baso # (Auto) 0.0 X10^3/uL (0.0-0.1) 06/25/23 05:23 Absolute Nucleated RBC 0.1 /100WBC 06/25/23 05:23 Total Counted 100 06/23/23 06:10 Neutrophils % (Manual) 51 % (39-76) 06/23/23 06:10 Lymphocytes % (Manual) 29 % (13-43) 06/23/23 06:10 Monocytes % (Manual) 17 % (4-9) H 06/23/23 06:10 Eosinophils % (Manual) 3 % (0-6) 06/23/23 06:10 Plt Morphology Comment Normal (NORMAL) 06/23/23 06:10 RBC Morphology Abnormal (NORMAL) 06/23/23 06:10 Hypochromasia Slight A 06/23/23 06:10 Anisocytosis Slight A 06/23/23 06:10 Sodium 136 mmol/L (136-145) 06/25/23 05:23 Corrected Sodium TNP 06/25/23 05:23 Potassium 4.5 mmol/L (3.5-5.1) 06/25/23 05:23 Chloride 102 mmol/L (98-107) 06/25/23 05:23 Carbon Dioxide 26.4 mmol/L (21-32) 06/25/23 05:23 BUN 31 mg/dL (7-18) H 06/25/23 05:23 Creatinine 1.79 mg/dL (0.70-1.30) H 06/25/23 05:23 Est GFR (MDRD) Af Amer 54 (>60) L 06/25/23 05:23 Est GFR (MDRD) Non-Af 44 (>60) L 06/25/23 05:23 Glucose 88 mg/dL (65-99) 06/25/23 05:23 Calcium 7.9 mg/dL (8.5-10.1) L 06/25/23 05:23 Corrected Calcium 8.7 mg/dL (8.5-10.1) 06/25/23 05:23 Total Bilirubin 0.30 mg/dL (0.2-1.0) 06/25/23 05:23 AST 23 Units/L (15-37) 06/25/23 05:23 ALT 22 Units/L (12-78) 06/25/23 05:23 Alkaline Phosphatase 98 Units/L (46-116) 06/25/23 05:23 Total Protein 7.8 g/dL (6.4-8.2) 06/25/23 05:23 Albumin 3.0 g/dL (3.4-5.0) L 06/25/23 05:23 Globulin 4.8 g/dL (2.5-4.5) H 06/25/23 05:23 Albumin/Globulin Ratio 0.6 Ratio (1.1-2.1) L 06/25/23 05:23 Random Vancomycin 22.4 ug/mL 06/23/23 06:10 Plan (1) Bilateral lower leg cellulitis: Status: Acute Plan: Discontinue IV vancomycin. Start IV Zosyn. (2) Bilateral lower extremity edema: Status: Acute Plan: Continue patient on bumetanide and spironolactone. (3) Venous stasis ulcers of both lower extremities: Status: None Plan: Treatment per general surgery and IV Zosyn. Follow-up wound cultures. (4) History of blood coagulation disorder: Status: None Plan: Continue Eliquis.
[2023-06-25] MEDS ORDERED: DUONEB 0.5 MG/3 MG (3 mL) NEB PRN (08:21)
[2023-06-25] MEDS ORDERED: PHARMACY COMMENT IV ONE (08:30)
[2023-06-25] MEDS: ELIQUIS PO SCH ×2 (08:49→20:42)
[2023-06-25] MEDS: ALDACTONE TAB 25 MG PO SCH (08:49)
[2023-06-25] MEDS: TOPAMAX TAB 100 MG PO SCH ×2 (08:49→20:42)
[2023-06-25] MEDS: DIOVAN TAB 80 MG PO SCH (08:50)
--- NOTE | 2023-06-25 09:00 | PCM.PROG ---
Progress Note Progress Note for Day of Date of Exam: 06/25/23 Subjective Subjective: The patient reports he is doing well today. He is receiving IV Zosyn for the 40 different gram-negative organisms that he grew out. He grew out Enterobacter cloacae, Klebsiella pneumoniae, E. coli and Shewalla Putrifaciens from his leg ulcers. This morning he also complains of feeling ross rt of breath and a hearing audibly wheezing without stethoscope. I will plan on doing jet nebs and albuterol and ipratropium along with shooting a chest x-ray this morning. His generalized lower extremity edema has improved on Bumex and spironolactone. Past Medical Family Social History Past Med/Fam/Surg Hx: No changes since H&P Allergies: Allergies No Known Drug Allergies Allergy (Unknown, Verified 06/20/23 15:12) Onset Date: 10/10/2020 Review of Systems ROS: No change since H&P Vital Signs and I&O's Vital Signs: Vital Signs Temperature 98.4 F Pulse Rate [Left Brachial] 64 Respiratory Rate 20 Respiratory Rate 20 Respiratory Rate 20 Blood Pressure [Right Arm] 113/60 O2 Sat by Pulse Oximetry 95 Intake and Output: Intake & Output 06/22/23 06/23/23 06/24/23 06/25/23 11:59 11:59 11:59 11:59 Intake Total 2084 1564 / 1564 192 / 1919 2586 / 2586 Output Total 960 / 960 Balance 2084 / 2084 604 / 604 1919 / 1919 258 / 2586 Physical Exam Oriented: Normal, Time, Person and Place Eyes: Normal Ear: Normal Nose: Normal Throat: Normal Cardiovascular: Edema : Normal Auscultation: Bowel Sounds: Normal Tenderness: Normal Skin: Normal and Other (bilateral leg ulcer more on the RT with chronic edema and stasis ulcers .) Musculoskeletal: Right, Left, Leg (dressing noted with drainage ) and Swelling Psychiatric: Normal Mood Description: Calm Affect: Normal Speech Pattern: Clear and Appropriate Laboratory and Diagnostics 06/25/23 05:23 06/25/23 05:23 Labs: 06/21/23 10:10 Leg - Right Wound Gram Stain - Final 06/21/23 10:10 Leg - Right Wound Culture - Final Klebsiella Pneumoniae Shewanella Putrefaciens 06/21/23 09:55 Leg - Left Wound Gram Stain - Final 06/21/23 09:55 Leg - Left Wound Culture - Preliminary Escherichia Coli Esbl Enterobacter Cloacae Laboratory WBC 5.0 X10^3/uL (3.6-10.0) 06/25/23 05:23 RBC 4.34 X10^6/uL (4.7-6.0) L 06/25/23 05:23 Hgb 11.3 g/dL (13.5-18.0) L 06/25/23 05:23 Hct 34.5 % (42.0-54.0) L 06/25/23 05:23 MCV 79.4 fL (80.0-100.0) L 06/25/23 05:23 MCH 26.1 pg (27.0-34.0) L 06/25/23 05:23 MCHC 32.9 g/dL (33.0-35.0) L 06/25/23 05: RDW 17.1 % (11.6-16.5) H 06/25/23 05:23 Plt Count 173 X10^3/uL (150.0-450.0) 06/25/23 05:23 Plt Count Comment Adequate (ADEQUATE) 06/23/23 06:10 MPV 9.0 fL (7.4-11.0) 06/25/23 05:23 Neut % (Auto) 44.9 % (42.0-75.0) 06/25/23 05:23 Lymph % (Auto) 34.8 % (21.0-51.0) 06/25/23 05:23 Elk % (Auto) 14.0 % (0.0-13.0) H 06/25/23 05:23 Eos % (Auto) 5.5 % (0.9-2.9) H 06/25/23 05:23 Baso % (Auto) 0.8 % (0.2-1.0) 06/25/23 05:23 Neut # (Auto) 2.3 x10^3/uL (2.2-4.8) 06/25/23 05:23 Lymph # (Auto) 1.8 X10^3/uL (1.3-2.9) 06/25/23 05:23 Elk # (Auto) 0.7 x10^3/uL (0.3-0.8) 06/25/23 05:23 Eos # (Auto) 0.3 x10^3/uL (0.0-0.2) H 06/25/23 05:23 Baso # (Auto) 0.0 X10^3/uL (0.0-0.1) 06/25/23 05:23 Absolute Nucleated RBC 0.1 /100WBC 06/25/23 05:23 Total Counted 100 06/23/23 06:10 Neutrophils % (Manual) 51 % (39-76) 06/23/23 06:10 Lymphocytes % (Manual) 29 % (13-43) 06/23/23 06:10 Monocytes % (Manual) 17 % (4-9) H 06/23/23 06:10 Eosinophils % (Manual) 3 % (0-6) 06/23/23 06:10 Plt Morphology Comment Normal (NORMAL) 06/23/23 06:10 RBC Morphology Abnormal (NORMAL) 06/23/23 06:10 Hypochromasia Slight A 06/23/23 06:10 Anisocytosis Slight A 06/23/23 06:10 Sodium 136 mmol/L (136-145) 06/25/23 05:23 Corrected Sodium TNP 06/25/23 05:23 Potassium 4.5 mmol/L (3.5-5.1) 06/25/23 05:23 Chloride 102 mmol/L (98-107) 06/25/23 05:23 Carbon Dioxide 26.4 mmol/L (21-32) 06/25/23 05:23 BUN 31 mg/dL (7-18) H 06/25/23 05:23 Creatinine 1.79 mg/dL (0.70-1.30) H 06/25/23 05:23 Est GFR (MDRD) Af Amer 54 (>60) L 06/25/23 05:23 Est GFR (MDRD) Non-Af 44 (>60) L 06/25/23 05:23 Glucose 88 mg/dL (65-99) 06/25/23 05:23 Calcium 7.9 mg/dL (8.5-10.1) L 06/25/23 05:23 Corrected Calcium 8.7 mg/dL (8.5-10.1) 06/25/23 05:23 Total Bilirubin 0.30 mg/dL (0.2-1.0) 06/25/23 05:23 AST 23 Units/L (15-37) 06/25/23 05:23 ALT 22 Units/L (12-78) 06/25/23 05:23 Alkaline Phosphatase 98 Units/L (46-116) 06/25/23 05:23 Total Protein 7.8 g/dL (6.4-8.2) 06/25/23 05:23 Albumin 3.0 g/dL (3.4-5.0) L 06/25/23 05:23 Globulin 4.8 g/dL (2.5-4.5) H 06/25/23 05:23 Albumin/Globulin Ratio 0.6 Ratio (1.1-2.1) L 06/25/23 05:23 Random Vancomycin 22.4 ug/mL 06/23/23 06:10 Plan (1) Bilateral lower leg cellulitis: Status: Acute Plan: Discontinue IV vancomycin. Start IV Zosyn. (2) Bilateral lower extremity edema: Status: Acute Plan: Continue patient on bumetanide and spironolactone. (3) Venous stasis ulcers of both lower extremities: Status: None Plan: Treatment per general surgery and IV Zosyn. Follow-up wound cultures. (4) History of blood coagulation disorder: Status: None Plan: Continue Eliquis.
--- NOTE | 2023-06-25 12:15 | RAD ---
EXAM:CHEST x-ray, 1 VIEWHISTORY:WHEEZING, SOB -COMPARISON:X-ray 03/05/2023FINDINGS:Normal variant azygous lobe is seen. Heart is normal in size. No pneumothorax, focal infiltrate, or pleural effusion is seen. No hyperinflation is seen.IMPRESSION:No acute cardiopulmonary abnormality is seen.THIS IS AN ELECTRONICALLY VERIFIED FINAL [id number]/25/2023 12:12 PM - Electronically signed by Arnie Douglas MD
[2023-06-25] MEDS ORDERED: NS 100 ML IV 100 ML ONE (14:08)
[2023-06-25] MEDS ORDERED: OMNIPAQUE 350 mg/mL 100 mL BTL 100 ML ONE (14:08)
--- NOTE | 2023-06-25 16:12 | CT ---
EXAM:CTA, CHESTHISTORY:SOB, LEG SWELLING, R/O PE;COMPARISON:None.TECHNIQUE:Axial CT was performed from the thoracic inlet to the upper abdomen with an arterial phase IV contrast bolus. The axial sequences are reconstructed with multiplaner reformats;volume rendered MIP and/or 3D reconstruction was generated from the original axial dataset.FINDINGS:Extensive superficial venous varicosities of the anterolateral and posterior chest and abdominal wall. Retrocrural and retroperitoneal varicosities are also demonstrated at the edge of the [id number]. An accessory azygous fissure is seen within the right upper lobe with mixing of contrast within this vascular segment, and there is dilation of the magda azygous vessels of the chest. The left magda azygous vein communicates directly with the left brachiocephalic vein. There is coarse calcification or heterotopic ossification along the posterior margin of the left brachiocephalic vein.Thoracic aorta is normal in caliber. No dissection identified. No centrally occlusive main, lobar or segmental pulmonary artery filling defects are identified. Evaluation of the more peripheral subsegmental pulmonary arteries is limited on this exam. There are no enlarged mediastinal, hilar or axillary lymph nodes of the chest. There is no pericardial or pleural effusion. Mild left ventricular wall thickening is observed.No pericardial or pleural effusion. Lungs clear aside from minimal localized subpleural ground-glass attenuation of the right lower lobe. No organized airspace consolidation is identified. Limited imaging of the upper abdomen reveals no additional acute abnormalities. No acute osseous abnormalities of the chest.IMPRESSION:No acute pulmonary thromboembolism.Normal caliber thoracic aorta without dissectionMinimal focal subpleural ground-glass change in the right lung base. Differential considerations include focal pneumonitis in the setting of small airways disease versus asymmetric hypostatic atelectatic lung change.Extensive venous collateral formation of the chest wall, hemiazygous system and retroperitoneal space, as detailed above.Radiation dose reduction was achieved through individualized adjustment of kVP and/or mA, through adaptive statistical iterative reconstruction, and/or through automated tube current modulation.THIS IS AN ELECTRONICALLY VERIFIED FINAL [id number]/2023 4:09 PM - Electronically signed by Pelon Bryant MD
[2023-06-25] MEDS: NORCO 10/325 TAB PO PRN (20:43)
[2023-06-26] MEDS: DILAUDID INJ IVP PRN ×4 (02:24→21:55)
[2023-06-26] MEDS: NEURONTIN CAP 400 MG PO SCH ×3 (06:21→21:08)
[2023-06-26] MEDS: ZOSYN VIAL 3.375 GRAMS 3.375 G in NS 100 ML IV 100 ML IV SCH ×3 (06:21→21:08)
[2023-06-26 06:47] LABS: BASOPHILS # (AUTO) 0.1 X10^3/uL (0.0-0.1); BASOPHILS % (AUTO) 0.9 % (0.2-1.0); EOSINOPHILS # (AUTO) 0.3 x10^3/uL (0.0-0.2); HEMATOCRIT 34.4 % (42.0-54.0); HEMOGLOBIN 11.1 g/dL (13.5-18.0); LYMPHOCYTES # (AUTO) 1.8 X10^3/uL (1.3-2.9); LYMPHOCYTES % (AUTO) 25.6 % (21.0-51.0); MEAN CORPUSCULAR HEMOGLOBIN 25.9 pg (27.0-34.0); MEAN CORPUSCULAR HGB CONC 32.2 g/dL (33.0-35.0); MEAN CORPUSCULAR VOLUME 80.4 fL (80.0-100.0); MEAN PLATELET VOLUME 9.2 fL (7.4-11.0); MONOCYTES # (AUTO) 0.7 x10^3/uL (0.3-0.8); MONOCYTES % (AUTO) 10.8 % (0.0-13.0); NEUTROPHILS % (AUTO) 58.7 % (42.0-75.0); PLATELET COUNT 187 X10^3/uL (150.0-450.0); RED BLOOD COUNT 4.28 X10^6/uL (4.7-6.0); RED CELL DISTRIBUTION WIDTH 17.2 % (11.6-16.5); WHITE BLOOD COUNT 6.9 X10^3/uL (3.6-10.0)
[2023-06-26 07:02] LABS: ALANINE AMINOTRANSFERASE 20 Units/L (12-78); ALBUMIN 3.3 g/dL (3.4-5.0); ALKALINE PHOSPHATASE 98 Units/L (46-116); ASPARTATE AMINO TRANSFERASE 22 Units/L (15-37); BLOOD UREA NITROGEN 38 mg/dL (7-18); CALCIUM 8.1 mg/dL (8.5-10.1); CHLORIDE 103 mmol/L (98-107); COR CA(FOR HYPOALB) 8.7 mg/dL (8.5-10.1); CREATININE 2.07 mg/dL (0.70-1.30); GLUCOSE 85 mg/dL (65-99); SODIUM 136 mmol/L (136-145); eGFR NON BLACK RACES 37 (>60)
[2023-06-26] MEDS ORDERED: SOLU-Medrol 125 MG VIAL IVP ONE (08:44)
[2023-06-26] MEDS: ELIQUIS PO SCH ×2 (09:14→21:07)
[2023-06-26] MEDS: DIOVAN TAB 80 MG PO SCH (09:14)
[2023-06-26] MEDS: ALDACTONE TAB 25 MG PO SCH (09:15)
[2023-06-26] MEDS: TOPAMAX TAB 100 MG PO SCH ×2 (09:15→21:08)
[2023-06-26] MEDS: DUONEB 0.5 MG/3 MG (3 mL) NEB SCH ×3 (12:14→17:08)
--- NOTE | 2023-06-26 12:43 | PCM.PROG ---
Progress Note Progress Note for Day of Date of Exam: 06/26/23 Subjective Subjective: The patient reports he is feeling better today. He still is having trouble reading and I still hear that he is wheezing. I will start him on IV Solu-Medrol today and see if this helps his breathing overall. I see that his creatinine is going up to 2.7 today. I will discontinue his spironolactone at this time continue him on the Bumex. In the meantime we will continue IV Zosyn for his chronic leg stasis ulcers that are infected from 4 different gram- negative organisms. Plan on discharge home in 2 days. That time we will change him over to oral Augmentin and p.o. Levaquin as both of those antibiotics will cover his different infections. Past Medical Family Social History Past Med/Fam/Surg Hx: No changes since H&P Allergies: Allergies No Known Drug Allergies Allergy (Unknown, Verified 06/20/23 15:12) Onset Date: 10/10/2020 Review of Systems ROS: No change since H&P Vital Signs and I&O's Vital Signs: Vital Signs Respiratory Rate 18 Respiratory Rate 18 O2 Sat by Pulse Oximetry 98 Intake and Output: Intake & Output 06/24/23 06/25/23 06/26/23 06/27/23 11:59 11:59 11:59 11:59 Intake Total 1919 2586 / 2586 1680 / 168 Balance 1919 2586 / 2586 1680 / 1680 Physical Exam Oriented: Normal, Time, Person and Place Eyes: Normal Ear: Normal Nose: Normal Throat: Normal Respiratory: Generalized, Diminished and Wheezes Cardiovascular: Edema : Normal Auscultation: Bowel Sounds: Normal Tenderness: Normal Skin: Normal and Other (bilateral leg ulcer more on the RT with chronic edema and stasis ulcers .) Musculoskeletal: Right, Left, Leg (dressing noted with drainage ) and Swelling Psychiatric: Normal Mood Description: Calm Affect: Normal Speech Pattern: Clear and Appropriate Laboratory and Diagnostics 06/26/23 05:40 06/26/23 05:40 Labs: 06/21/23 09:55 Leg - Left Wound Gram Stain - Final 06/21/23 09:55 Leg - Left Wound Culture - Final Escherichia Coli Esbl Enterobacter Cloacae 06/21/23 10:10 Leg - Right Wound Gram Stain - Final 06/21/23 10:10 Leg - Right Wound Culture - Final Klebsiella Pneumoniae Shewanella Putrefaciens Laboratory WBC 6.9 X10^3/uL (3.6-10.0) 06/26/23 05:40 RBC 4.28 X10^6/uL (4.7-6.0) L 06/26/23 05:40 Hgb 11.1 g/dL (13.5-18.0) L 06/26/23 05:40 Hct 34.4 % (42.0-54.0) L 06/26/23 05:40 MCV 80.4 fL (80.0-100.0) 06/26/23 05:40 MCH 25.9 pg (27.0-34.0) L 06/26/23 05:40 MCHC 32.2 g/dL (33.0-35.0) L 06/26/23 05:40 RDW 17.2 % (11.6-16.5) H 06/26/23 05:40 Plt Count 187 X10^3/uL (150.0-450.0) 06/26/23 05:40 Plt Count Comment Adequate (ADEQUATE) 06/23/23 06:10 MPV 9.2 fL (7.4-11.0) 06/26/23 05:40 Neut % (Auto) 58.7 % (42.0-75.0) 06/26/23 05:40 Lymph % (Auto) 25.6 % (21.0-51.0) 06/26/23 05:40 [place] % (Auto) 10.8 % (0.0-13.0) 06/26/23 05:40 Eos % (Auto) 4.0 % (0.9-2.9) H 06/26/23 05:40 Baso % (Auto) 0.9 % (0.2-1.0) 06/26/23 05:40 Neut # (Auto) 4.0 x10^3/uL (2.2-4.8) 06/26/23 05:40 Lymph # (Auto) 1.8 X10^3/uL (1.3-2.9) 06/26/23 05:40 [place] # (Auto) 0.7 x10^3/uL (0.3-0.8) 06/26/23 05:40 Eos # (Auto) 0.3 x10^3/uL (0.0-0.2) H 06/26/23 05:40 Baso # (Auto) 0.1 X10^3/uL (0.0-0.1) 06/26/23 05:40 Absolute Nucleated RBC 0.0 /100WBC 06/26/23 05:40 Total Counted 100 06/23/23 06:10 Neutrophils % (Manual) 51 % (39-76) 06/23/23 06:10 Lymphocytes % (Manual) 29 % (13-43) 06/23/23 06:10 Monocytes % (Manual) 17 % (4-9) H 06/23/23 06:10 Eosinophils % (Manual) 3 % (0-6) 06/23/23 06:10 Plt Morphology Comment Normal (NORMAL) 06/23/23 06:10 RBC Morphology Abnormal (NORMAL) 06/23/23 06:10 Hypochromasia Slight A 06/23/23 06:10 Anisocytosis Slight A 06/23/23 06:10 Sodium 136 mmol/L (136-145) 06/26/23 05:40 Corrected Sodium TNP 06/26/23 05:40 Potassium 4.0 mmol/L (3.5-5.1) 06/26/23 05:40 Chloride 103 mmol/L (98-107) 06/26/23 05:40 Carbon Dioxide 26.0 mmol/L (21-32) 06/26/23 05:40 BUN 38 mg/dL (7-18) H 06/26/23 05:40 Creatinine 2.07 mg/dL (0.70-1.30) H 06/26/23 05:40 Est GFR (MDRD) Af Amer 45 (>60) L 06/26/23 05:40 Est GFR (MDRD) Non-Af 37 (>60) L 06/26/23 05:40 Glucose 85 mg/dL (65-99) 06/26/23 05:40 Calcium 8.1 mg/dL (8.5-10.1) L 06/26/23 05:40 Corrected Calcium 8.7 mg/dL (8.5-10.1) 06/26/23 05:40 Total Bilirubin 0.30 mg/dL (0.2-1.0) 06/26/23 05:40 AST 22 Units/L (15-37) 06/26/23 05:40 ALT 20 Units/L (12-78) 06/26/23 05:40 Alkaline Phosphatase 98 Units/L (46-116) 06/26/23 05:40 B-Natriuretic Peptide 23.2 pg/mL (0-79) 06/25/23 05:23 Total Protein 8.0 g/dL (6.4-8.2) 06/26/23 05:40 Albumin 3.3 g/dL (3.4-5.0) L 06/26/23 05:40 Globulin 4.7 g/dL (2.5-4.5) H 06/26/23 05:40 Albumin/Globulin Ratio 0.7 Ratio (1.1-2.1) L 06/26/23 05:40 Random Vancomycin 22.4 ug/mL 06/23/23 06:10 Tissue Pathology See comment. 06/21/23 09:58 Radiology Reviewed: Yes Plan (1) Bilateral lower leg cellulitis: Status: Acute Plan: Discontinue IV vancomycin. Continue Zosyn. (2) Bilateral lower extremity edema: Status: Acute Plan: Continue patient on bumetanide. (3) Venous stasis ulcers of both lower extremities: Status: None Plan: Treatment per general surgery and IV Zosyn. Follow-up wound cult ures. (4) History of blood coagulation disorder: Status: None Plan: Continue Eliquis. (5) Dehydration: Status: Acute Plan: Discontinue spironolactone at this time secondary to increasing BUN and creatinine.
[2023-06-26] MEDS ORDERED: NARCAN INJ IVP ONE (16:05)
[2023-06-26 17:48] LABS: ABG BASE EXCESS -2.9 mmol/L (-2.0-2.0)
[2023-06-26 17:49] LABS: ABG ALLEN TEST POS
--- NOTE | 2023-06-26 18:08 | CT ---
History: AMS Relevant Clinical InformationExam :BRAIN W/O CONTechnique: Thin section axial ct images of the brain were obtained from the foramen magnum to the vertex without contrast. Sagittal and coronal reconstructions were also performed.Comparison:Findings: The ventricles are within normal limits in size. No midline shift, mass effect or extra-axial fluid collections. No evidence of acute hemorrhage or acute macroinfarction.The visualized paranasal sinuses and mastoids are unremarkable. The calvarium is intact.Impression:Normal noncontrast CT of the brain; no acute intracranial pathologyElectronically signed by: Jian Clayton (Jun 26, 2023 18:07:29)
[2023-06-26] MEDS: SOLU-Medrol 40 MG VIAL IVP SCH (21:08)
[2023-06-26 21:55] VITALS: RESP 18
[2023-06-27] MEDS: DUONEB 0.5 MG/3 MG (3 mL) NEB SCH ×2 (00:04→05:55)
[2023-06-27] MEDS: DILAUDID INJ IVP PRN ×2 (01:35→07:07)
[2023-06-27 04:56] VITALS: BP 119/60; PULSE 81; TEMP 98.2; O2SAT 96
[2023-06-27] MEDS: NEURONTIN CAP 400 MG PO SCH (05:09)
[2023-06-27] MEDS: ZOSYN VIAL 3.375 GRAMS 3.375 G in NS 100 ML IV 100 ML IV SCH (05:09)
[2023-06-27 06:42] LABS: BASOPHILS % (AUTO) 0.4 % (0.2-1.0); EOSINOPHILS % (AUTO) 0.3 % (0.9-2.9); HEMATOCRIT 32.6 % (42.0-54.0); HEMOGLOBIN 10.6 g/dL (13.5-18.0); LYMPHOCYTES # (AUTO) 1.3 X10^3/uL (1.3-2.9); LYMPHOCYTES % (AUTO) 13.7 % (21.0-51.0); MEAN CORPUSCULAR HEMOGLOBIN 26.1 pg (27.0-34.0); MEAN CORPUSCULAR HGB CONC 32.6 g/dL (33.0-35.0); MEAN PLATELET VOLUME 9.4 fL (7.4-11.0); MONOCYTES # (AUTO) 0.9 x10^3/uL (0.3-0.8); MONOCYTES % (AUTO) 9.2 % (0.0-13.0); NEUTROPHILS # (AUTO) 7.4 x10^3/uL (2.2-4.8); NEUTROPHILS % (AUTO) 76.4 % (42.0-75.0); PLATELET COUNT 191 X10^3/uL (150.0-450.0); RED BLOOD COUNT 4.08 X10^6/uL (4.7-6.0); RED CELL DISTRIBUTION WIDTH 17.2 % (11.6-16.5); WHITE BLOOD COUNT 9.7 X10^3/uL (3.6-10.0)
[2023-06-27 06:52] LABS: ALBUMIN 3.1 g/dL (3.4-5.0); CALCIUM 7.9 mg/dL (8.5-10.1); CARBON DIOXIDE 24.6 mmol/L (21-32); COR CA(FOR HYPOALB) 8.6 mg/dL (8.5-10.1); CREATININE 1.68 mg/dL (0.70-1.30); POTASSIUM 4.5 mmol/L (3.5-5.1); TOTAL PROTEIN 7.8 g/dL (6.4-8.2)
[2023-06-27] MEDS ORDERED: DILAUDID INJ IVP PRN (08:25)
[2023-06-27] MEDS: DIOVAN TAB 80 MG PO SCH (09:54)
[2023-06-27] MEDS: ELIQUIS PO SCH (09:55)
[2023-06-27] MEDS: SOLU-Medrol 40 MG VIAL IVP SCH (09:55)
[2023-06-27] MEDS: TOPAMAX TAB 100 MG PO SCH (09:56)
--- NOTE | 2023-06-27 09:56 | PCM.DCPLAN ---
DISCHARGE SUMMARY Admission Date Date of Admission: 06/21/23 Discharge Date Discharge Date: 06/27/23 Admission Diagnoses (1) Bilateral lower leg cellulitis: Status: Acute (2) Bilateral lower extremity edema: Status: Acute (3) Venous stasis ulcers of both lower extremities: Status: None (4) History of blood coagulation disorder: Status: None (5) Dehydration: Status: Acute Discharge Diagnoses Discharge Diagnosis: 1. Bilateral lower extremity wounds with infection secondary to E. coli extended spectrum beta-lactamase, Enterobacter cloacae, Shewanella putrefaciens and Klebsiella pneumonia. 2. Chronic bilateral lower extremity edema 3. Hypoxia with wheezing 4. Venous stasis ulcers both lower extremities 5. History of coagulopathy 6. Dehydration resolved 7. Anemia 8. Altered mental status unknown etiology now resolved. Discharge Medications Discharge Medications: Home Medication List gabapentin 800 mg tablet 800 mg PO TID 06/21/23 [History] Prescriptions: Hospital Course Vital Signs: Vital Signs Temperature 98.2 F Pulse Rate [Left Brachial] 81 Respiratory Rate 18 Respiratory Rate 18 Respiratory Rate 18 Blood Pressure [Right Arm] 119/60 O2 Sat by Pulse Oximetry 96 Latest Lab Results: Laboratory Last Values WBC 9.7 X10^3/uL (3.6-10.0) 06/27/23 05:24 RBC 4.08 X10^6/uL (4.7-6.0) L 06/27/23 05:24 Hgb 10.6 g/dL (13.5-18.0) L 06/27/23 05:24 Hct 32.6 % (42.0-54.0) L 06/27/23 05:24 MCV 80.0 fL (80.0-100.0) 06/27/23 05:24 MCH 26.1 pg (27.0-34.0) L 06/27/23 05:24 MCHC 32.6 g/dL (33.0-35.0) L 06/27/23 05:24 RDW 17.2 % (11.6-16.5) H 06/27/23 05:24 Plt Count 191 X10^3/uL (150.0-450.0) 06/27/23 05:24 Plt Count Comment Adequate (ADEQUATE) 06/23/23 06:10 MPV 9.4 fL (7.4-11.0) 06/27/23 05:24 Neut % (Auto) 76.4 % (42.0-75.0) H 06/27/23 05:24 Lymph % (Auto) 13.7 % (21.0-51.0) L 06/27/23 05:24 [place] % (Auto) 9.2 % (0.0-13.0) 06/27/23 05:24 Eos % (Auto) 0.3 % (0.9-2.9) L 06/27/23 05:24 Baso % (Auto) 0.4 % (0.2-1.0) 06/27/23 05:24 Neut # (Auto) 7.4 x10^3/uL (2.2-4.8) H 06/27/23 05:24 Lymph # (Auto) 1.3 X10^3/uL (1.3-2.9) 06/27/23 05:24 [place] # (Auto) 0.9 x10^3/uL (0.3-0.8) H 06/27/23 05:24 Eos # (Auto) 0.0 x10^3/uL (0.0-0.2) 06/27/23 05:24 Baso # (Auto) 0.0 X10^3/uL (0.0-0.1) 06/27/23 05:24 Absolute Nucleated RBC 0.0 /100WBC 06/27/23 05:24 Total Counted 100 06/23/23 06:10 Neutrophils % (Manual) 51 % (39-76) 06/23/23 06:10 Lymphocytes % (Manual) 29 % (13-43) 06/23/23 06:10 Monocytes % (Manual) 17 % (4-9) H 06/23/23 06:10 Eosinophils % (Manual) 3 % (0-6) 06/23/23 06:10 Plt Morphology Comment Normal (NORMAL) 06/23/23 06:10 RBC Morphology Abnormal (NORMAL) 06/23/23 06:10 Hypochromasia Slight A 06/23/23 06:10 Anisocytosis Slight A 06/23/23 06:10 Sample Site Rrad 06/26/23 17:43 ABG pH 7.370 (7.35-7.45) 06/26/23 17:43 ABG pCO2 38.0 mmHg (35.0-45.0) 06/26/23 17:43 ABG pO2 119.0 mmHg (80.0-100.0) H 06/26/23 17:43 ABG HCO3 22.0 mmol/L (22-26) 06/26/23 17:43 ABG O2 Saturation 99.0 % (90-100) 06/26/23 17:43 ABG Base Excess -2.9 mmol/L (-2.0-2.0) L 06/26/23 17:43 Pedro Test Pos 06/26/23 17:43 A-a Gradient 33.0 mmHg 06/26/23 17:43 FiO2 28.0 06/26/23 17:43 Blood Gas Comments Pt [place] well. eb/kg 06/26/23 17:43 Sodium 136 mmol/L (136-145) 06/27/23 05:24 Corrected Sodium 137 mmol/L (136-145) 06/27/23 05:24 Potassium 4.5 mmol/L (3.5-5.1) 06/27/23 05:24 Chloride 105 mmol/L (98-107) 06/27/23 05:24 Carbon Dioxide 24.6 mmol/L (21-32) 06/27/23 05:24 BUN 32 mg/dL (7-18) H 06/27/23 05:24 Creatinine 1.68 mg/dL (0.70-1.30) H 06/27/23 05:24 Est GFR (MDRD) Af Amer 58 (>60) L 06/27/23 05:24 Est GFR (MDRD) Non-Af 48 (>60) L 06/27/23 05:24 Glucose 149 mg/dL (65-99) H 06/27/23 05:24 Calcium 7.9 mg/dL (8.5-10.1) L 06/27/23 05:24 Corrected Calcium 8.6 mg/dL (8.5-10.1) 06/27/23 05:24 Total Bilirubin 0.20 mg/dL (0.2-1.0) 06/27/23 05:24 AST 25 Units/L (15-37) 06/27/23 05:24 ALT 24 Units/L (12-78) 06/27/23 05:24 Alkaline Phosphatase 91 Units/L (46-116) 06/27/23 05:24 B-Natriuretic Peptide 23.2 pg/mL (0-79) 06/25/23 05:23 Total Protein 7.8 g/dL (6.4-8.2) 06/27/23 05:24 Albumin 3.1 g/dL (3.4-5.0) L 06/27/23 05:24 Globulin 4.7 g/dL (2.5-4.5) H 06/27/23 05:24 Albumin/Globulin Ratio 0.7 Ratio (1.1-2.1) L 06/27/23 05:24 Random Vancomycin 22.4 ug/mL 06/23/23 06:10 Urine Opiates Screen Negative (NEG=<300) 06/26/23 18:22 Urine Methadone Screen Negative (NEG=<300) 06/26/23 18:22 Ur Barbiturates Screen Negative (NEG=<200) 06/26/23 18:22 Ur Phencyclidine Scrn Negative (NEG=<25) 06/26/23 18:22 Ur Amphetamines Screen Negative (NEG=<1000) 06/26/23 18:22 U Benzodiazepines Scrn Negative (NEG=<200) 06/26/23 18:22 Urine Cocaine Screen Negative (NEG=<300) 06/26/23 18:22 U Marijuana (THC) Screen Negative (NEG=<50) 06/26/23 18:22 Tissue Pathology See comment. 06/21/23 09:58 Hospital Course: This is a 43-year-old white male well-known to me. He has chronic stasis venous ulcers of his legs bilaterally. Saw in the office yesterday and they were dr barnes and had a foul odor. Afterwards he saw general surgery, Dr. Reed who recommended that we put him in the hospital for debridement which she had earlier this morning. We will keep him in the hospital over the weekend and diuresing him and treatment IV antibiotics. Follow-up with wound cultures as well. We also will be discontinuing his spironolactone as he is getting over diuresed and causing him to have dehydration. After the patient was admitted to the hospital general surgeon, Dr. Reed took him to the OR and debrided the leg wounds. He also cultured and when the culture came back you are at 4 different gram-negative organisms. The organisms for E. coli ESBL, Klebsiella pneumoniae, Enterobacter cloacae and Shewanella putrefaciens which are sensitive to levofloxacin and Augmentin. We changed him over from IV vancomycin to IV Zosyn as Zosyn covers all 4 organisms. Patient did well for several days while getting IV antibiotics however yesterday on Saturday, 26 June 2023 he developed altered mental status and there was a concern that that he may have taken a controlled medication from somebody. We gave him Narcan and he responded and woke up and went to the bathroom and to self and there for quite a long time. We did a urine drug screen however it did not show any medications in his system nor did it show the pain medicine that we were giving him IV. He will receive an IV Dilaudid here in the hospital for pain control. Also CT of his brain and it was normal did an ABG and it also was normal. This morning he is alert and awake and is breathing better. I started him on IV Solu-Medrol yesterday for expiratory wheezing and that has resolved at this time. He is stable enough to be discharged home. We discussed this with general surgeon, Dr. Reed and he is in agreement to let him go home today. We will discharge him home on Levaquin 500 mg 1 p.o. daily x10 days and Augmentin 875 mg 1 p.o. twice daily x10 days. He can resume his other medication as previously prescribed. He will be following up with general surgeon, Dr. Reed in 2 weeks and I will having follow-up with me in 10 days for hospital follow-up. Patient is discharged home in stable condition he is told to call my office if he has any problems after discharge. He is told to call my office see if he has any trouble and if I am not available he is told to go to emergency department for further evaluation and treatment. The patient understands this.
--- NOTE | 2023-07-01 17:00 | DR.PROGNOT ---
HOSPITAL PROGRESS NOTE Progress Note for Day of: Progress Note Date: 06/25/23 Chief Complaint Chief Complaint: feeling better with less pain . wound C&S showed G negative Rods and MRSA .. sensitive to Vancomycin . IRAIS 21 .. Creat 1.5 .normal WBC . afebrile .. Past Medical Family Social History Past Med/Fam/Surg Hx: No changes since H&P Allergies: Allergies No Known Drug Allergies Allergy (Unknown, Verified 06/20/23 15:12) Onset Date: 10/10/2020 Review Of Systems ROS: No change since H&P Vital Signs Vital Signs: Vital Signs Temperature 98.1 F Pulse Rate [Left Brachial] 65 Respiratory Rate 20 Respiratory Rate 20 Respiratory Rate 20 Respiratory Rate 20 Respiratory Rate 20 Blood Pressure [Right Arm] 108/58 O2 Sat by Pulse Oximetry 96 Physical Exam Oriented: Normal, Time, Person and Place Eyes: Normal Ear: Normal Nose: Normal Throat: Normal Cardiovascular: Edema : Normal GI:Auscultation: Normal GI:Palpation: Normal GI: Tenderness: Normal Skin: Normal and Other (bilateral leg ulcer more on the RT with chronic edema and stasis ulcers .) Musculoskeletal: Right, Left, Leg (dressing noted with drainage ) and Swelling Psychiatric: Normal Mood Description: Calm Affect: Normal Speech Pattern: Clear and Appropriate Laboratory and Diagnostics 06/27/23 05:24 06/27/23 05:24 Labs: 06/21/23 09:55 Leg - Left Wound Gram Stain - Final 06/21/23 09:55 Leg - Left Wound Culture - Final Escherichia Coli Esbl Enterobacter Cloacae 06/21/23 10:10 Leg - Right Wound Gram Stain - Final 06/21/23 10:10 Leg - Right Wound Culture - Final Klebsiella Pneumoniae Shewanella Putrefaciens Laboratory WBC 5.0 X10^3/uL (3.6-10.0) 06/25/23 05:23 RBC 4.34 X10^6/uL (4.7-6.0) L 06/25/23 05:23 Hgb 11.3 g/dL (13.5-18.0) L 06/25/23 05:23 Hct 34.5 % (42.0-54.0) L 06/25/23 05:23 MCV 79.4 fL (80.0-100.0) L 06/25/23 05:23 MCH 26.1 pg (27.0-34.0) L 06/25/23 05: MCHC 32.9 g/dL (33.0-35.0) L 06/25/23 05: RDW 17.1 % (11.6-16.5) H 06/25/23 05:23 Plt Count 173 X10^3/uL (150.0-450.0) 06/25/23 05:23 Plt Count Comment Adequate (ADEQUATE) 06/23/23 06:10 MPV 9.0 fL (7.4-11.0) 06/25/23 05:23 Neut % (Auto) 44.9 % (42.0-75.0) 06/25/23 05:23 Lymph % (Auto) 34.8 % (21.0-51.0) 06/25/23 05:23 [place] % (Auto) 14.0 % (0.0-13.0) H 06/25/23 05:23 Eos % (Auto) 5.5 % (0.9-2.9) H 06/25/23 05:23 Baso % (Auto) 0.8 % (0.2-1.0) 06/25/23 05:23 Neut # (Auto) 2.3 x10^3/uL (2.2-4.8) 06/25/23 05:23 Lymph # (Auto) 1.8 X10^3/uL (1.3-2.9) 06/25/23 05:23 [place] # (Auto) 0.7 x10^3/uL (0.3-0.8) 06/25/23 05:23 Eos # (Auto) 0.3 x10^3/uL (0.0-0.2) H 06/25/23 05:23 Baso # (Auto) 0.0 X10^3/uL (0.0-0.1) 06/25/23 05:23 Absolute Nucleated RBC 0.1 /100WBC 06/25/23 05:23 Total Counted 100 06/23/23 06:10 Neutrophils % (Manual) 51 % (39-76) 06/23/23 06:10 Lymphocytes % (Manual) 29 % (13-43) 06/23/23 06:10 Monocytes % (Manual) 17 % (4-9) H 06/23/23 06:10 Eosinophils % (Manual) 3 % (0-6) 06/23/23 06:10 Plt Morphology Comment Normal (NORMAL) 06/23/23 06:10 RBC Morphology Abnormal (NORMAL) 06/23/23 06:10 Hypochromasia Slight A 06/23/23 06:10 Anisocytosis Slight A 06/23/23 06:10 Sodium 136 mmol/L (136-145) 06/25/23 05:23 Corrected Sodium TNP 06/25/23 05:23 Potassium 4.5 mmol/L (3.5-5.1) 06/25/23 05:23 Chloride 102 mmol/L (98-107) 06/25/23 05:23 Carbon Dioxide 26.4 mmol/L (21-32) 06/25/23 05:23 BUN 31 mg/dL (7-18) H 06/25/23 05:23 Creatinine 1.79 mg/dL (0.70-1.30) H 06/25/23 05:23 Est GFR (MDRD) Af Amer 54 (>60) L 06/25/23 05:23 Est GFR (MDRD) Non-Af 44 (>60) L 06/25/23 05:23 Glucose 88 mg/dL (65-99) 06/25/23 05:23 Calcium 7.9 mg/dL (8.5-10.1) L 06/25/23 05:23 Corrected Calcium 8.7 mg/dL (8.5-10.1) 06/25/23 05:23 Total Bilirubin 0.30 mg/dL (0.2-1.0) 06/25/23 05:23 AST 23 Units/L (15-37) 06/25/23 05:23 ALT 22 Units/L (12-78) 06/25/23 05:23 Alkaline Phosphatase 98 Units/L (46-116) 06/25/23 05:23 B-Natriuretic Peptide 23.2 pg/mL (0-79) 06/25/23 05:23 Total Protein 7.8 g/dL (6.4-8.2) 06/25/23 05:23 Albumin 3.0 g/dL (3.4-5.0) L 06/25/23 05:23 Globulin 4.8 g/dL (2.5-4.5) H 06/25/23 05:23 Albumin/Globulin Ratio 0.6 Ratio (1.1-2.1) L 06/25/23 05:23 Random Vancomycin 22.4 ug/mL 06/23/23 06:10 Tissue Pathology See comment. 06/21/23 09:58 Assessment and Plan 1: infected stasis ulcers both legs with cellulitis , s/p debridement . MRSA and Gram negative Rods . on IV vancomycin . local care , packing with Iodoform . 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 3: obesity , chronic edema lower extr Problem Patient Problems: Patient Problems (Updated 06/21/23 @ 23:57 by Dharmesh Hampton) Bilateral lower leg cellulitis (Acute) L03.116, L03.115
== END 2023-06-27 12:30 | disposition home health service (06) | DRG 603 ==
LOC: ER 07:56 → U 08:59 → MED/SURG 10:58
PROVIDERS: ADMIT Family Medicine; ATTEND Family Medicine
DX: B96.89 Other specified bacterial agents as the cause of diseases classified elsewhere; B96.29 Other Escherichia coli [E. coli] as the cause of diseases classified elsewhere; E86.0 Dehydration; B95.62 Methicillin resistant Staphylococcus aureus infection as the cause of diseases classified elsewhere; I83.228 Varicose veins of left lower extremity with both ulcer of other part of lower extremity and inflammation; B96.1 Klebsiella pneumoniae [K. pneumoniae] as the cause of diseases classified elsewhere; L97.818 Non-pressure chronic ulcer of other part of right lower leg with other specified severity; Z79.01 Long term (current) use of anticoagulants; R41.82 Altered mental status, unspecified; L03.115 Cellulitis of right lower limb; R60.0 Localized edema; Z16.12 Extended spectrum beta lactamase (ESBL) resistance; L97.828 Non-pressure chronic ulcer of other part of left lower leg with other specified severity; I10 Essential (primary) hypertension; L03.116 Cellulitis of left lower limb; I25.10 Atherosclerotic heart disease of native coronary artery without angina pectoris; E66.01 Morbid (severe) obesity due to excess calories; I83.218 Varicose veins of right lower extremity with both ulcer of other part of lower extremity and inflammation; R06.02 Shortness of breath